=== PATIENT | male | born 1950 | race Caucasian/White ===

== ENCOUNTER 2016-05-28 14:58 | Outpatient (CLI) | payer BC, OTHER ==
[~2016-05-28 14:58] MED LIST: AMYL1CAP58 PO; ATOR10TA PO; DIPH1TAB70 PO; FERR325T28 PO; GABA-532 PO; INSU100I19 SQ; LOSA25TA13 PO; MAGN500C4 PO; MIDO10TA PO; OMEP40CA37 PO; SERT100T PO
== END 2016-05-28 23:59 | disposition home or self-care (01) ==
LOC: WOU 14:58
PROVIDERS: ATTEND Surgery
DX: S51.812D Laceration without foreign body of left forearm, subsequent encounter (principal); E11.42 Type 2 diabetes mellitus with diabetic polyneuropathy; Z86.73 Personal history of transient ischemic attack (TIA), and cerebral infarction without residual deficits; C25.9 Malignant neoplasm of pancreas, unspecified; Z92.21 Personal history of antineoplastic chemotherapy; Z85.820 Personal history of malignant melanoma of skin; I10 Essential (primary) hypertension
CPT/HCPCS: G0463

== ENCOUNTER 2016-06-03 11:58 | Outpatient (CLI) | payer BC, OTHER ==
[2016-06-03 13:06] LABS: IRON, SERUM 22 ug/dl (50-175); PERCENT SATURATION 11 % (14-33); TOTAL IRON BINDING CAPACITY 206 ug/dl (250-450)
[2016-06-03 13:08] LABS: ALANINE AMINOTRANSFERASE 46 U/L (12-78); ALBUMIN 2.3 g/dL (3.4-5.0); ANION GAP 9 (5-14); ASPARTATE AMINOTRANSFERASE 57 U/L (15-37); BILIRUBIN,TOTAL 0.2 mg/dL (0.2-1.0); CALCIUM, SERUM 7.9 mg/dL (8.5-10.1); CARBON DIOXIDE 29 mmol/L (21-32); CHLORIDE 103 mmol/L (98-107); CREATININE 0.7 mg/dL (0.6-1.3); GFR 114 mL/min (>60); GLUCOSE 181 mg/dL (74-106); POTASSIUM 4.7 mmol/L (3.5-5.1); SODIUM SERUM 137 mmol/L (136-145); TOTAL PROTEIN, SERUM 6.3 g/dL (6.4-8.2); UREA NITROGEN, BLOOD 4 mg/dL (7-18)
[2016-06-03 13:15] LABS: BASOPHILS % (AUTO) 0.8 % (0.0-2.0); DIFF TOTAL % 100 %; EOSINOPHILS % (AUTO) 0.7 % (0.0-6.0); HEMATOCRIT 33 % (39-51); HEMOGLOBIN 11.3 g/dL (13.5-17.5); LYMPHOCYTES # (AUTO) 1.5 /CMM (0.8-4.8); LYMPHOCYTES % (AUTO) 24.7 % (20.0-44.0); MEAN CORPUSCULAR HEMOGLOBIN 33 PG (26.0-33.0); MEAN CORPUSCULAR HGB CONC 34 g/dl (31.0-36.0); MEAN CORPUSCULAR VOLUME 98 fL (80-96); MONOCYTES # (AUTO) 0.2 /CMM (0.1-1.30); MONOCYTES % (AUTO) 3.8 % (2.0-12.0); NEUTROPHILS # (AUTO) 4.3 /CMM (1.8-8.9); PLATELET COUNT (AUTO) 305 /CMM (150-450); RED BLOOD CELL COUNT(AUTO) 3.39 MIL/uL (4.5-6.0)
[2016-06-03 13:17] LABS: CHOLESTEROL 85 mg/dL (<200); HDL CHOLESTEROL 29 mg/dL (40-60); LDL 51 mg/dL (0-99); THYROID STIMULATING HORMONE 4.382 uIU/mL (0.358-3.74); TRIGLYCERIDES 51 mg/dL (30-150)
[2016-06-04 08:09] LABS: VIT D, 25-HYDROXY 40.3 ng/mL (30.0-100.0)
[2016-06-05 13:12] LABS: *TESTOSTERONE, FREE (DIRECT) 2.6 pg/mL (6.6-18.1)
== END 2016-06-03 23:59 | disposition home or self-care (01) ==
LOC: LAB 11:58
PROVIDERS: ATTEND Legal Medicine
DX: E11.9 Type 2 diabetes mellitus without complications (principal); I10 Essential (primary) hypertension; D64.9 Anemia, unspecified; C25.9 Malignant neoplasm of pancreas, unspecified
CPT/HCPCS: 36415; 80053-TC; 80061-TC; 82306; 82728-TC; 83540-TC; 83735-TC; 84153-TC; 84402-TC; 84443-TC; 85025-TC; 86301

== ENCOUNTER 2016-06-10 08:02 | Outpatient (CLI) | payer BC, OTHER ==
[2016-06-10 08:59] LABS: BASOPHILS % (AUTO) 0.1 % (0.0-2.0); DIFF TOTAL % 100 %; EOSINOPHILS # (AUTO) 0.1 /CMM (0.0-0.7); EOSINOPHILS % (AUTO) 0.4 % (0.0-6.0); HEMATOCRIT 34 % (39-51); HEMOGLOBIN 11.3 g/dL (13.5-17.5); LYMPHOCYTES # (AUTO) 1.9 /CMM (0.8-4.8); LYMPHOCYTES % (AUTO) 9.4 % (20.0-44.0); MEAN CORPUSCULAR HEMOGLOBIN 33 PG (26.0-33.0); MEAN CORPUSCULAR HGB CONC 33 g/dl (31.0-36.0); MEAN CORPUSCULAR VOLUME 99 fL (80-96); MONOCYTES # (AUTO) 0.3 /CMM (0.1-1.30); MONOCYTES % (AUTO) 1.7 % (2.0-12.0); NEUTROPHILS # (AUTO) 17.5 /CMM (1.8-8.9); NEUTROPHILS % (AUTO) 88.4 % (43.0-81.0); PLATELET COUNT (AUTO) 168 /CMM (150-450); RED BLOOD CELL COUNT(AUTO) 3.44 MIL/uL (4.5-6.0); WHITE BLOOD COUNT (AUTO) 19.8 K/uL (4.3-11.0)
[2016-06-10 09:21] LABS: ALBUMIN 2.7 g/dL (3.4-5.0); BILIRUBIN,TOTAL 0.3 mg/dL (0.2-1.0); CALCIUM, SERUM 8.1 mg/dL (8.5-10.1); CREATININE 0.7 mg/dL (0.6-1.3); POTASSIUM 3.9 mmol/L (3.5-5.1); TOTAL PROTEIN, SERUM 7.1 g/dL (6.4-8.2)
[2016-06-10 13:58] LABS: ANISOCYTOSIS 2+; LYMPHOCYTES % (MANUAL) 12 % (16-48); PLATELET ESTIMATE ADEQUATE
== END 2016-06-10 23:59 | disposition home or self-care (01) ==
LOC: LAB 08:02
DX: C25.9 Malignant neoplasm of pancreas, unspecified (principal)
CPT/HCPCS: 36415; 80053-TC; 83735-TC; 85025-TC; 86301

== ENCOUNTER 2016-06-10 14:35 | Outpatient (CLI) | payer BC, OTHER | END 2016-06-10 23:59 | disposition home or self-care (01) | LOC: WOU 14:35 | PROVIDERS: ATTEND Podiatrist Foot & Ankle Surgery | DX: E11.621 Type 2 diabetes mellitus with foot ulcer (principal); L97.422 Non-pressure chronic ulcer of left heel and midfoot with fat layer exposed; L97.522 Non-pressure chronic ulcer of other part of left foot with fat layer exposed; E11.42 Type 2 diabetes mellitus with diabetic polyneuropathy; Z86.718 Personal history of other venous thrombosis and embolism; Z79.4 Long term (current) use of insulin; M20.40 Other hammer toe(s) (acquired), unspecified foot; L03.116 Cellulitis of left lower limb; R60.1 Generalized edema | CPT/HCPCS: 11042; A6402 ==

== ENCOUNTER 2016-06-15 07:33 | Outpatient (CLI) | payer BC, OTHER ==
[2016-06-15 08:00] LABS: BASOPHILS # (AUTO) 0.1 /CMM (0.0-0.2); BASOPHILS % (AUTO) 0.3 % (0.0-2.0); DIFF TOTAL % 100 %; EOSINOPHILS # (AUTO) 0.1 /CMM (0.0-0.7); EOSINOPHILS % (AUTO) 0.7 % (0.0-6.0); HEMATOCRIT 38 % (39-51); HEMOGLOBIN 12.3 g/dL (13.5-17.5); LYMPHOCYTES # (AUTO) 1.5 /CMM (0.8-4.8); LYMPHOCYTES % (AUTO) 7.1 % (20.0-44.0); MEAN CORPUSCULAR HEMOGLOBIN 33 PG (26.0-33.0); MEAN CORPUSCULAR HGB CONC 33 g/dl (31.0-36.0); MEAN CORPUSCULAR VOLUME 100 fL (80-96); MONOCYTES # (AUTO) 0.3 /CMM (0.1-1.30); MONOCYTES % (AUTO) 1.4 % (2.0-12.0); NEUTROPHILS # (AUTO) 18.7 /CMM (1.8-8.9); NEUTROPHILS % (AUTO) 90.5 % (43.0-81.0); PLATELET COUNT (AUTO) 198 /CMM (150-450); RED BLOOD CELL COUNT(AUTO) 3.77 MIL/uL (4.5-6.0); WHITE BLOOD COUNT (AUTO) 20.7 K/uL (4.3-11.0)
[2016-06-15 08:21] LABS: ALBUMIN 2.5 g/dL (3.4-5.0); BILIRUBIN,TOTAL 0.3 mg/dL (0.2-1.0); CALCIUM, SERUM 7.6 mg/dL (8.5-10.1); CREATININE 0.9 mg/dL (0.6-1.3); POTASSIUM 4.1 mmol/L (3.5-5.1); TOTAL PROTEIN, SERUM 6.8 g/dL (6.4-8.2)
[2016-06-15 09:12] LABS: ANISOCYTOSIS 2+; BAND % (MANUAL) 2 % (0.0-5.0); LYMPHOCYTES % (MANUAL) 9 % (16-48); PLATELET ESTIMATE ADEQUATE
== END 2016-06-15 23:59 | disposition home or self-care (01) ==
LOC: LAB 07:33
PROVIDERS: ATTEND Legal Medicine
DX: C25.9 Malignant neoplasm of pancreas, unspecified (principal)
CPT/HCPCS: 36415; 80053-TC; 83735-TC; 85025-TC; 86301

== ENCOUNTER 2016-06-17 09:59 | Outpatient (CLI) | payer BC, OTHER | END 2016-06-17 23:59 | disposition home or self-care (01) | LOC: WOU 09:59 | PROVIDERS: ATTEND Podiatrist Foot & Ankle Surgery | DX: E11.621 Type 2 diabetes mellitus with foot ulcer (principal); L97.522 Non-pressure chronic ulcer of other part of left foot with fat layer exposed; L97.521 Non-pressure chronic ulcer of other part of left foot limited to breakdown of skin; L97.411 Non-pressure chronic ulcer of right heel and midfoot limited to breakdown of skin; Z86.718 Personal history of other venous thrombosis and embolism; Z87.891 Personal history of nicotine dependence; E11.42 Type 2 diabetes mellitus with diabetic polyneuropathy; Z86.73 Personal history of transient ischemic attack (TIA), and cerebral infarction without residual deficits; Z85.820 Personal history of malignant melanoma of skin; I10 Essential (primary) hypertension; Z85.07 Personal history of malignant neoplasm of pancreas | CPT/HCPCS: 11042; A6402 ==

== ENCOUNTER 2016-06-23 08:35 | Outpatient (CLI) | payer BC, OTHER ==
[2016-06-23 09:26] LABS: BASOPHILS % (AUTO) 0.2 % (0.0-2.0); DIFF TOTAL % 100 %; EOSINOPHILS # (AUTO) 0.1 /CMM (0.0-0.7); EOSINOPHILS % (AUTO) 0.6 % (0.0-6.0); HEMATOCRIT 38 % (39-51); HEMOGLOBIN 12.4 g/dL (13.5-17.5); LYMPHOCYTES % (AUTO) 6.7 % (20.0-44.0); MEAN CORPUSCULAR HEMOGLOBIN 33 PG (26.0-33.0); MEAN CORPUSCULAR HGB CONC 33 g/dl (31.0-36.0); MEAN CORPUSCULAR VOLUME 100 fL (80-96); MONOCYTES % (AUTO) 0.1 % (2.0-12.0); NEUTROPHILS # (AUTO) 14.2 /CMM (1.8-8.9); NEUTROPHILS % (AUTO) 92.4 % (43.0-81.0); PLATELET COUNT (AUTO) 448 /CMM (150-450); RED BLOOD CELL COUNT(AUTO) 3.75 MIL/uL (4.5-6.0); WHITE BLOOD COUNT (AUTO) 15.3 K/uL (4.3-11.0)
[2016-06-23 09:41] LABS: ALBUMIN 2.5 g/dL (3.4-5.0); BILIRUBIN,TOTAL 0.3 mg/dL (0.2-1.0); CREATININE 0.6 mg/dL (0.6-1.3)
[2016-06-23 12:16] LABS: EOSINOPHILS % (MANUAL) 1 % (0-4); LYMPHOCYTES % (MANUAL) 9 % (16-48)
[2016-06-23 12:17] LABS: ANISOCYTOSIS 2+; PLATELET ESTIMATE INCREASED
== END 2016-06-23 23:59 | disposition home or self-care (01) ==
LOC: LAB 08:35
DX: C25.9 Malignant neoplasm of pancreas, unspecified (principal)
CPT/HCPCS: 36415; 80053-TC; 83735-TC; 85025-TC; 86301

== ENCOUNTER 2016-06-24 10:26 | Outpatient (CLI) | payer BC, OTHER | END 2016-06-24 23:59 | disposition home or self-care (01) | LOC: WOU 10:26 | PROVIDERS: ATTEND Podiatrist Foot & Ankle Surgery | DX: E11.621 Type 2 diabetes mellitus with foot ulcer (principal); L97.522 Non-pressure chronic ulcer of other part of left foot with fat layer exposed; L97.411 Non-pressure chronic ulcer of right heel and midfoot limited to breakdown of skin; B35.1 Tinea unguium; R60.0 Localized edema; E11.42 Type 2 diabetes mellitus with diabetic polyneuropathy; Z86.73 Personal history of transient ischemic attack (TIA), and cerebral infarction without residual deficits; Z85.820 Personal history of malignant melanoma of skin; Z85.07 Personal history of malignant neoplasm of pancreas | CPT/HCPCS: 11042; A6402 ==

== ENCOUNTER 2016-06-29 08:02 | Outpatient (CLI) | payer BC, OTHER ==
[2016-06-29 08:39] LABS: BASOPHILS % (AUTO) 0.1 % (0.0-2.0); DIFF TOTAL % 100 %; EOSINOPHILS # (AUTO) 0.1 /CMM (0.0-0.7); EOSINOPHILS % (AUTO) 0.2 % (0.0-6.0); HEMATOCRIT 35 % (39-51); HEMOGLOBIN 11.6 g/dL (13.5-17.5); LYMPHOCYTES # (AUTO) 0.9 /CMM (0.8-4.8); LYMPHOCYTES % (AUTO) 2.5 % (20.0-44.0); MEAN CORPUSCULAR HEMOGLOBIN 33 PG (26.0-33.0); MEAN CORPUSCULAR HGB CONC 33 g/dl (31.0-36.0); MEAN CORPUSCULAR VOLUME 101 fL (80-96); MONOCYTES % (AUTO) 0.1 % (2.0-12.0); NEUTROPHILS # (AUTO) 35.2 /CMM (1.8-8.9); NEUTROPHILS % (AUTO) 97.1 % (43.0-81.0); PLATELET COUNT (AUTO) 289 /CMM (150-450); RED BLOOD CELL COUNT(AUTO) 3.51 MIL/uL (4.5-6.0)
[2016-06-29 08:56] LABS: ALBUMIN 2.4 g/dL (3.4-5.0); BILIRUBIN,TOTAL 0.3 mg/dL (0.2-1.0); CALCIUM, SERUM 7.8 mg/dL (8.5-10.1); CREATININE 0.8 mg/dL (0.6-1.3); POTASSIUM 4.2 mmol/L (3.5-5.1); TOTAL PROTEIN, SERUM 6.7 g/dL (6.4-8.2)
[2016-06-29 09:00] LABS: WHITE BLOOD COUNT (AUTO) 36.2 K/uL (4.3-11.0)
[2016-06-29 09:12] LABS: BAND % (MANUAL) 2 % (0.0-5.0); LYMPHOCYTES % (MANUAL) 2 % (16-48); PLATELET ESTIMATE ADEQUATE
[2016-06-29 09:13] LABS: ANISOCYTOSIS 1+
== END 2016-06-29 23:59 | disposition home or self-care (01) ==
LOC: LAB 08:02
DX: C25.9 Malignant neoplasm of pancreas, unspecified (principal)
CPT/HCPCS: 36415; 80053-TC; 83735-TC; 85025-TC; 86301

== ENCOUNTER 2016-07-01 08:26 | Outpatient (CLI) | payer BC, OTHER | END 2016-07-01 23:59 | disposition home or self-care (01) | LOC: WOU 08:26 | PROVIDERS: ATTEND Podiatrist Foot & Ankle Surgery | DX: E11.621 Type 2 diabetes mellitus with foot ulcer (principal); L97.522 Non-pressure chronic ulcer of other part of left foot with fat layer exposed; B35.1 Tinea unguium; R60.0 Localized edema; E11.42 Type 2 diabetes mellitus with diabetic polyneuropathy; Z86.718 Personal history of other venous thrombosis and embolism; Z85.820 Personal history of malignant melanoma of skin; Z85.07 Personal history of malignant neoplasm of pancreas; Z86.73 Personal history of transient ischemic attack (TIA), and cerebral infarction without residual deficits | CPT/HCPCS: 11042; A6402 ==

== ENCOUNTER 2016-07-06 08:27 | Outpatient (CLI) | payer BC, OTHER ==
[2016-07-06 09:20] LABS: BASOPHILS % (AUTO) 0.1 % (0.0-2.0); DIFF TOTAL % 100 %; EOSINOPHILS # (AUTO) 0.2 /CMM (0.0-0.7); EOSINOPHILS % (AUTO) 0.8 % (0.0-6.0); HEMATOCRIT 38 % (39-51); HEMOGLOBIN 12.3 g/dL (13.5-17.5); LYMPHOCYTES # (AUTO) 1.6 /CMM (0.8-4.8); LYMPHOCYTES % (AUTO) 7.6 % (20.0-44.0); MEAN CORPUSCULAR HEMOGLOBIN 33 PG (26.0-33.0); MEAN CORPUSCULAR HGB CONC 33 g/dl (31.0-36.0); MEAN CORPUSCULAR VOLUME 101 fL (80-96); MONOCYTES # (AUTO) 0.8 /CMM (0.1-1.30); MONOCYTES % (AUTO) 3.7 % (2.0-12.0); NEUTROPHILS # (AUTO) 18.2 /CMM (1.8-8.9); NEUTROPHILS % (AUTO) 87.8 % (43.0-81.0); PLATELET COUNT (AUTO) 250 /CMM (150-450); RED BLOOD CELL COUNT(AUTO) 3.72 MIL/uL (4.5-6.0); WHITE BLOOD COUNT (AUTO) 20.8 K/uL (4.3-11.0)
[2016-07-06 09:33] LABS: ALBUMIN 2.3 g/dL (3.4-5.0); BILIRUBIN,TOTAL 0.3 mg/dL (0.2-1.0); CALCIUM, SERUM 7.8 mg/dL (8.5-10.1); CREATININE 0.9 mg/dL (0.6-1.3); POTASSIUM 4.5 mmol/L (3.5-5.1); TOTAL PROTEIN, SERUM 6.4 g/dL (6.4-8.2)
== END 2016-07-06 23:59 | disposition home or self-care (01) ==
LOC: LAB 08:27
DX: C25.9 Malignant neoplasm of pancreas, unspecified (principal)
CPT/HCPCS: 36415; 80053-TC; 83735-TC; 85025-TC; 86301

== ENCOUNTER 2016-07-13 16:53 | Outpatient (CLI) | payer BC, OTHER ==
[2016-07-13 17:51] LABS: BASOPHILS # (AUTO) 0.1 /CMM (0.0-0.2); BASOPHILS % (AUTO) 0.7 % (0.0-2.0); DIFF TOTAL % 100 %; EOSINOPHILS # (AUTO) 0.1 /CMM (0.0-0.7); HEMATOCRIT 33 % (39-51); HEMOGLOBIN 11.2 g/dL (13.5-17.5); LYMPHOCYTES # (AUTO) 0.9 /CMM (0.8-4.8); MEAN CORPUSCULAR HEMOGLOBIN 34 PG (26.0-33.0); MEAN CORPUSCULAR HGB CONC 34 g/dl (31.0-36.0); MEAN CORPUSCULAR VOLUME 101 fL (80-96); MONOCYTES % (AUTO) 0.4 % (2.0-12.0); NEUTROPHILS # (AUTO) 11.1 /CMM (1.8-8.9); NEUTROPHILS % (AUTO) 90.9 % (43.0-81.0); PLATELET COUNT (AUTO) 387 /CMM (150-450); RED BLOOD CELL COUNT(AUTO) 3.28 MIL/uL (4.5-6.0); WHITE BLOOD COUNT (AUTO) 12.2 K/uL (4.3-11.0)
[2016-07-13 17:58] LABS: BILIRUBIN,TOTAL 0.3 mg/dL (0.2-1.0); CALCIUM, SERUM 7.6 mg/dL (8.5-10.1); CREATININE 0.9 mg/dL (0.6-1.3); POTASSIUM 4.5 mmol/L (3.5-5.1); TOTAL PROTEIN, SERUM 6.2 g/dL (6.4-8.2)
== END 2016-07-13 23:59 | disposition home or self-care (01) ==
LOC: LAB 16:53
DX: C25.9 Malignant neoplasm of pancreas, unspecified (principal)
CPT/HCPCS: 36415; 80053-TC; 83735-TC; 85025-TC; 86301

== ENCOUNTER 2016-07-20 10:17 | Outpatient (CLI) | payer BC, OTHER ==
[2016-07-20 10:38] LABS: BASOPHILS % (AUTO) 0.2 % (0.0-2.0); DIFF TOTAL % 100 %; EOSINOPHILS # (AUTO) 0.2 /CMM (0.0-0.7); EOSINOPHILS % (AUTO) 1.3 % (0.0-6.0); HEMATOCRIT 33 % (39-51); LYMPHOCYTES % (AUTO) 9.3 % (20.0-44.0); MEAN CORPUSCULAR HEMOGLOBIN 33 PG (26.0-33.0); MEAN CORPUSCULAR HGB CONC 33 g/dl (31.0-36.0); MEAN CORPUSCULAR VOLUME 100 fL (80-96); MONOCYTES % (AUTO) 0.2 % (2.0-12.0); NEUTROPHILS # (AUTO) 9.9 /CMM (1.8-8.9); PLATELET COUNT (AUTO) 373 /CMM (150-450); RED BLOOD CELL COUNT(AUTO) 3.32 MIL/uL (4.5-6.0); WHITE BLOOD COUNT (AUTO) 11.2 K/uL (4.3-11.0)
[2016-07-20 11:00] LABS: ALBUMIN 2.1 g/dL (3.4-5.0); BILIRUBIN,TOTAL 0.3 mg/dL (0.2-1.0); CALCIUM, SERUM 7.8 mg/dL (8.5-10.1); CREATININE 0.6 mg/dL (0.6-1.3); TOTAL PROTEIN, SERUM 6.2 g/dL (6.4-8.2)
== END 2016-07-20 23:59 | disposition home or self-care (01) ==
LOC: LAB 10:17
DX: C25.9 Malignant neoplasm of pancreas, unspecified (principal)
CPT/HCPCS: 36415; 80053-TC; 83735-TC; 85025-TC; 86301

== ENCOUNTER 2016-07-27 08:13 | Outpatient (CLI) | payer BC, OTHER ==
[2016-07-27 08:46] LABS: BASOPHILS % (AUTO) 0.1 % (0.0-2.0); DIFF TOTAL % 100 %; EOSINOPHILS # (AUTO) 0.1 /CMM (0.0-0.7); EOSINOPHILS % (AUTO) 0.5 % (0.0-6.0); HEMATOCRIT 36 % (39-51); HEMOGLOBIN 11.7 g/dL (13.5-17.5); LYMPHOCYTES # (AUTO) 0.7 /CMM (0.8-4.8); LYMPHOCYTES % (AUTO) 6.8 % (20.0-44.0); MEAN CORPUSCULAR HEMOGLOBIN 33 PG (26.0-33.0); MEAN CORPUSCULAR HGB CONC 33 g/dl (31.0-36.0); MEAN CORPUSCULAR VOLUME 100 fL (80-96); MONOCYTES # (AUTO) 0.9 /CMM (0.1-1.30); MONOCYTES % (AUTO) 8.9 % (2.0-12.0); NEUTROPHILS # (AUTO) 8.3 /CMM (1.8-8.9); NEUTROPHILS % (AUTO) 83.7 % (43.0-81.0); PLATELET COUNT (AUTO) 281 /CMM (150-450); RED BLOOD CELL COUNT(AUTO) 3.55 MIL/uL (4.5-6.0); WHITE BLOOD COUNT (AUTO) 9.9 K/uL (4.3-11.0)
[2016-07-27 09:10] LABS: CALCIUM, SERUM 7.7 mg/dL (8.5-10.1); CREATININE 0.8 mg/dL (0.6-1.3); POTASSIUM 4.5 mmol/L (3.5-5.1)
[2016-07-27 09:14] LABS: ALBUMIN 2.2 g/dL (3.4-5.0); BILIRUBIN,TOTAL 0.3 mg/dL (0.2-1.0); TOTAL PROTEIN, SERUM 6.6 g/dL (6.4-8.2)
== END 2016-07-27 23:59 | disposition home or self-care (01) ==
LOC: LAB 08:13
PROVIDERS: ATTEND Legal Medicine
DX: C25.9 Malignant neoplasm of pancreas, unspecified (principal)
CPT/HCPCS: 36415; 80053-TC; 83735-TC; 85025-TC; 86301

== ENCOUNTER 2016-08-03 08:08 | Outpatient (CLI) | payer BC, OTHER ==
[2016-08-03 08:45] LABS: BASOPHILS # (AUTO) 0.2 /CMM (0.0-0.2); BASOPHILS % (AUTO) 0.8 % (0.0-2.0); DIFF TOTAL % 100 %; EOSINOPHILS # (AUTO) 0.1 /CMM (0.0-0.7); EOSINOPHILS % (AUTO) 0.4 % (0.0-6.0); HEMATOCRIT 36 % (39-51); HEMOGLOBIN 11.9 g/dL (13.5-17.5); LYMPHOCYTES # (AUTO) 1.2 /CMM (0.8-4.8); LYMPHOCYTES % (AUTO) 4.2 % (20.0-44.0); MEAN CORPUSCULAR HEMOGLOBIN 33 PG (26.0-33.0); MEAN CORPUSCULAR HGB CONC 33 g/dl (31.0-36.0); MEAN CORPUSCULAR VOLUME 101 fL (80-96); MONOCYTES # (AUTO) 0.3 /CMM (0.1-1.30); MONOCYTES % (AUTO) 1.1 % (2.0-12.0); NEUTROPHILS # (AUTO) 27.2 /CMM (1.8-8.9); NEUTROPHILS % (AUTO) 93.5 % (43.0-81.0); PLATELET COUNT (AUTO) 287 /CMM (150-450); RED BLOOD CELL COUNT(AUTO) 3.61 MIL/uL (4.5-6.0); WHITE BLOOD COUNT (AUTO) 29.1 K/uL (4.3-11.0)
[2016-08-03 08:54] LABS: ALBUMIN 2.3 g/dL (3.4-5.0); BILIRUBIN,TOTAL 0.3 mg/dL (0.2-1.0); CALCIUM, SERUM 8.3 mg/dL (8.5-10.1); CREATININE 0.9 mg/dL (0.6-1.3); POTASSIUM 4.8 mmol/L (3.5-5.1); TOTAL PROTEIN, SERUM 6.7 g/dL (6.4-8.2)
[2016-08-03 10:03] LABS: BAND % (MANUAL) 8 % (0.0-5.0); LYMPHOCYTES % (MANUAL) 5 % (16-48); PLATELET ESTIMATE ADEQUATE
[2016-08-03 10:04] LABS: ANISOCYTOSIS 1+
== END 2016-08-03 23:59 | disposition home or self-care (01) ==
LOC: LAB 08:08
DX: C25.9 Malignant neoplasm of pancreas, unspecified (principal)
CPT/HCPCS: 36415; 80053-TC; 83735-TC; 85025-TC; 86301

== ENCOUNTER → 2016-08-07 | Outpatient (CLI) | payer BC, OTHER ==
[2016-08-07 09:22] LABS: EOSINOPHILS # (AUTO) 0.1 /CMM (0.0-0.7); EOSINOPHILS % (AUTO) 0.7 % (0.0-6.0); HEMATOCRIT 31 % (39-51); HEMOGLOBIN 10.3 g/dL (13.5-17.5); LYMPHOCYTES # (AUTO) 0.6 /CMM (0.8-4.8); LYMPHOCYTES % (AUTO) 2.7 % (20.0-44.0); MEAN CORPUSCULAR HEMOGLOBIN 33 PG (26.0-33.0); MEAN CORPUSCULAR HGB CONC 33 g/dl (31.0-36.0); MEAN CORPUSCULAR VOLUME 100 fL (80-96); MONOCYTES % (AUTO) 0.2 % (2.0-12.0); NEUTROPHILS # (AUTO) 20.4 /CMM (1.8-8.9); NEUTROPHILS % (AUTO) 96.4 % (43.0-81.0); PLATELET COUNT (AUTO) 166 /CMM (150-450); RDW COEFFICIENT OF VARIATION 20.4 (11.5-15.0); RED BLOOD CELL COUNT(AUTO) 3.14 MIL/uL (4.5-6.0); WHITE BLOOD COUNT (AUTO) 21.1 K/uL (4.3-11.0)
[2016-08-07 09:38] LABS: BILIRUBIN,TOTAL 0.5 mg/dL (0.2-1.0); CALCIUM, SERUM 7.9 mg/dL (8.5-10.1); CREATININE 0.7 mg/dL (0.6-1.3); MAGNESIUM 1.6 mg/dL (1.8-2.4); POTASSIUM 5.5 mmol/L (3.5-5.1); TOTAL PROTEIN, SERUM 5.9 g/dL (6.4-8.2)
== END ==
LOC: CARD 08:26
PROVIDERS: ATTEND Legal Medicine
DX: I87.2 Venous insufficiency (chronic) (peripheral) (principal); R59.1 Generalized enlarged lymph nodes; C25.9 Malignant neoplasm of pancreas, unspecified
CPT/HCPCS: 36415; 80053-TC; 83735-TC; 85025-TC; 86301; 93925-TC; 93970-TC

== ENCOUNTER 2016-08-17 07:57 | Outpatient (CLI) | payer BC, OTHER ==
[2016-08-17 08:32] LABS: EOSINOPHILS # (AUTO) 0.1 /CMM (0.0-0.7); EOSINOPHILS % (AUTO) 0.7 % (0.0-6.0); HEMATOCRIT 33 % (39-51); HEMOGLOBIN 10.8 g/dL (13.5-17.5); LYMPHOCYTES # (AUTO) 0.9 /CMM (0.8-4.8); LYMPHOCYTES % (AUTO) 5.8 % (20.0-44.0); MEAN CORPUSCULAR HEMOGLOBIN 34 PG (26.0-33.0); MEAN CORPUSCULAR HGB CONC 33 g/dl (31.0-36.0); MEAN CORPUSCULAR VOLUME 103 fL (80-96); MONOCYTES # (AUTO) 0.8 /CMM (0.1-1.30); MONOCYTES % (AUTO) 4.9 % (2.0-12.0); NEUTROPHILS % (AUTO) 88.6 % (43.0-81.0); PLATELET COUNT (AUTO) 399 /CMM (150-450); RED BLOOD CELL COUNT(AUTO) 3.21 MIL/uL (4.5-6.0); WHITE BLOOD COUNT (AUTO) 15.8 K/uL (4.3-11.0)
[2016-08-17 08:41] LABS: ALBUMIN 1.9 g/dL (3.4-5.0); BILIRUBIN,TOTAL 0.3 mg/dL (0.2-1.0); CALCIUM, SERUM 7.7 mg/dL (8.5-10.1); CREATININE 0.8 mg/dL (0.6-1.3); MAGNESIUM 1.6 mg/dL (1.8-2.4); POTASSIUM 4.9 mmol/L (3.5-5.1); TOTAL PROTEIN, SERUM 5.9 g/dL (6.4-8.2)
== END 2016-08-17 23:59 | disposition home or self-care (01) ==
LOC: LAB 07:57
PROVIDERS: ATTEND Legal Medicine
DX: C25.9 Malignant neoplasm of pancreas, unspecified (principal)
CPT/HCPCS: 80053-TC; 83735-TC; 85025-TC

== ENCOUNTER 2016-08-25 08:05 | Outpatient (CLI) | payer BC, OTHER ==
[2016-08-25 08:30] LABS: BASOPHILS # (AUTO) 0.1 /CMM (0.0-0.2); BASOPHILS % (AUTO) 0.2 % (0.0-2.0); EOSINOPHILS # (AUTO) 0.1 /CMM (0.0-0.7); EOSINOPHILS % (AUTO) 0.2 % (0.0-6.0); HEMATOCRIT 33 % (39-51); LYMPHOCYTES # (AUTO) 1.2 /CMM (0.8-4.8); LYMPHOCYTES % (AUTO) 3.8 % (20.0-44.0); MEAN CORPUSCULAR HEMOGLOBIN 34 PG (26.0-33.0); MEAN CORPUSCULAR HGB CONC 33 g/dl (31.0-36.0); MEAN CORPUSCULAR VOLUME 102 fL (80-96); MONOCYTES # (AUTO) 0.5 /CMM (0.1-1.30); MONOCYTES % (AUTO) 1.4 % (2.0-12.0); NEUTROPHILS # (AUTO) 30.2 /CMM (1.8-8.9); NEUTROPHILS % (AUTO) 94.4 % (43.0-81.0); PLATELET COUNT (AUTO) 500 /CMM (150-450); RDW COEFFICIENT OF VARIATION 19.6 (11.5-15.0); RED BLOOD CELL COUNT(AUTO) 3.25 MIL/uL (4.5-6.0)
[2016-08-25 08:50] LABS: BILIRUBIN,TOTAL 0.2 mg/dL (0.2-1.0); CALCIUM, SERUM 7.9 mg/dL (8.5-10.1); CREATININE 0.8 mg/dL (0.6-1.3); POTASSIUM 4.4 mmol/L (3.5-5.1)
[2016-08-25 09:00] LABS: MAGNESIUM 1.2 mg/dL (1.8-2.4)
[2016-08-25 09:15] LABS: BAND % (MANUAL) 2 % (0.0-5.0); EOSINOPHILS % (MANUAL) 1 % (0-4); LYMPHOCYTES % (MANUAL) 6 % (16-48); MONOCYTES % (MANUAL) 4 % (0-11.0); NEUTROPHILS % (MANUAL) 87 (42-76); PLATELET ESTIMATE INCREASED
[2016-08-25 09:16] LABS: ANISOCYTOSIS 1+
== END 2016-08-25 23:59 | disposition home or self-care (01) ==
LOC: LAB 08:05
DX: C25.9 Malignant neoplasm of pancreas, unspecified (principal)
CPT/HCPCS: 36415; 80053-TC; 83735-TC; 85025-TC; 86301

== ENCOUNTER 2016-09-03 07:52 | Outpatient (CLI) | payer BC, OTHER ==
[2016-09-03 08:13] LABS: EOSINOPHILS # (AUTO) 0.1 /CMM (0.0-0.7); EOSINOPHILS % (AUTO) 0.5 % (0.0-6.0); HEMATOCRIT 33 % (39-51); HEMOGLOBIN 11.3 g/dL (13.5-17.5); LYMPHOCYTES # (AUTO) 0.9 /CMM (0.8-4.8); LYMPHOCYTES % (AUTO) 3.3 % (20.0-44.0); MEAN CORPUSCULAR HEMOGLOBIN 35 PG (26.0-33.0); MEAN CORPUSCULAR HGB CONC 34 g/dl (31.0-36.0); MEAN CORPUSCULAR VOLUME 102 fL (80-96); MONOCYTES # (AUTO) 0.1 /CMM (0.1-1.30); MONOCYTES % (AUTO) 0.2 % (2.0-12.0); NEUTROPHILS # (AUTO) 27.2 /CMM (1.8-8.9); PLATELET COUNT (AUTO) 208 /CMM (150-450); RDW COEFFICIENT OF VARIATION 19.1 (11.5-15.0); RED BLOOD CELL COUNT(AUTO) 3.26 MIL/uL (4.5-6.0); WHITE BLOOD COUNT (AUTO) 28.3 K/uL (4.3-11.0)
[2016-09-03 08:45] LABS: ANISOCYTOSIS 1+; BAND % (MANUAL) 2 % (0.0-5.0); LYMPHOCYTES % (MANUAL) 4 % (16-48); MONOCYTES % (MANUAL) 3 % (0-11.0); NEUTROPHILS % (MANUAL) 91 (42-76); PLATELET ESTIMATE ADEQUATE
[2016-09-03 08:55] LABS: ALBUMIN 2.1 g/dL (3.4-5.0); BILIRUBIN,TOTAL 0.3 mg/dL (0.2-1.0); CALCIUM, SERUM 7.7 mg/dL (8.5-10.1); CREATININE 0.8 mg/dL (0.6-1.3); MAGNESIUM 1.6 mg/dL (1.8-2.4); POTASSIUM 4.2 mmol/L (3.5-5.1); TOTAL PROTEIN, SERUM 6.1 g/dL (6.4-8.2)
== END 2016-09-03 23:59 | disposition home or self-care (01) ==
LOC: LAB 07:52
DX: C25.9 Malignant neoplasm of pancreas, unspecified (principal)
CPT/HCPCS: 36415; 80053-TC; 83735-TC; 85025-TC; 86301

== ENCOUNTER 2016-09-14 08:00 | Inpatient (IN) | payer BC, OTHER ==
[~2016-09-14] VITALS: Ht 190.5 cm; Wt 77.1 kg
--- NOTE | 2016-09-14 08:03 | NUR ---
PT BIB C/O GENERALIZED WEAKNESS AND HEADACHE X2 DAYS. PT HAD A GLF 2 DAYS AGO WHICH CAUSED ABRASIONS ON HIS L LOWER ARM AND STERNAL PAIN. NOW TOO WEAK TO AMBULATE BUT ABLE TO STAND DURING TRANSFERS, WITH ASSIST. NO NEURO DEFICITS OR VISUAL CHANGES REPORTED. A/OX4. AUSTYN LOWER EXT +3 PITTING EDEMA. RESP EVEN UNLABORED. SKIN WARM NONDIAPHORETIC. PT ALSO REPORTS THAT HE HAS "A STUBBORN UTI" WHICH HE IS BEING TREATED FOR AND SELF-CATHS AT HOME. IN ER BED 05 ON MONITOR. MD AT BEDSIDE.
--- NOTE | 2016-09-14 08:18 | NUR ---
TWITCHELL OPERATOR AT BEDSIDE FOR BLOOD DRAW
[2016-09-14] MEDS ORDERED: IV SET PRIMARY 1 EA INFUS.SET MC ONE (08:25)
[2016-09-14] MEDS ORDERED: IV NS 0.9% 1,000 ML ONE (08:25)
[2016-09-14] MEDS ORDERED: IV NS 0.9% 1,000 ML BAG IV ONE (08:30)
--- NOTE | 2016-09-14 08:32 | NUR ---
PT TRANSPORTED TO CT IN STABLE CONDITION
[2016-09-14 08:43] LABS: EOSINOPHILS % (AUTO) 0.2 % (0.0-6.0); HEMATOCRIT 28 % (39-51); HEMOGLOBIN 9.2 g/dL (13.5-17.5); LYMPHOCYTES # (AUTO) 0.6 /CMM (0.8-4.8); LYMPHOCYTES % (AUTO) 7.3 % (20.0-44.0); MEAN CORPUSCULAR HEMOGLOBIN 34 PG (26.0-33.0); MEAN CORPUSCULAR HGB CONC 33 g/dl (31.0-36.0); MEAN CORPUSCULAR VOLUME 105 fL (80-96); MONOCYTES % (AUTO) 0.1 % (2.0-12.0); NEUTROPHILS # (AUTO) 8.2 /CMM (1.8-8.9); NEUTROPHILS % (AUTO) 92.4 % (43.0-81.0); PLATELET COUNT (AUTO) 387 /CMM (150-450); RDW COEFFICIENT OF VARIATION 18.9 (11.5-15.0); RED BLOOD CELL COUNT(AUTO) 2.71 MIL/uL (4.5-6.0); WHITE BLOOD COUNT (AUTO) 8.8 K/uL (4.3-11.0)
[2016-09-14 08:50] LABS: APPEARANCE,URINE CLOUDY (CLEAR); BILIRUBIN,URINE NEGATIVE (NEGATIVE); BLOOD, URINE 2+ Ery/uL (NEGATIVE); COLOR,URINE YELLOW (YELLOW); KETONES,URINE 1+ (NEGATIVE); LEUKOCYTE ESTERASE ,URINE 2+ (NEGATIVE); NITRITE, URINE POSITIVE (NEGATIVE); PH,URINE 5.5 (5.0-8.0); PROTEIN,URINE TRACE mg/dl (NEGATIVE); UGLUCOSE NEGATIVE (NEGATIVE); UROBILINOGEN,URINE 0.2 EU/dL (0.2)
[2016-09-14 08:53] LABS: CALCIUM, SERUM 7.8 mg/dL (8.5-10.1); CARBON DIOXIDE 26 mmol/L (21-32); CHLORIDE 107 mmol/L (98-107); CREATININE 0.7 mg/dL (0.6-1.3); GFR 114 mL/min (>60); GLUCOSE 135 mg/dL (74-106); POTASSIUM 3.6 mmol/L (3.5-5.1); SODIUM SERUM 141 mmol/L (136-145); UREA NITROGEN, BLOOD 22 mg/dL (7-18)
[2016-09-14] MEDS ORDERED: PANTOPRAZOLE 40 MG VIAL ONE (08:59)
[2016-09-14 09:00] LABS: ALANINE AMINOTRANSFERASE 59 U/L (12-78); ALKALINE PHOSPHATASE 384 U/L (46-116); ASPARTATE AMINOTRANSFERASE 84 U/L (15-37); BILIRUBIN,DIRECT 0.2 mg/dL (0.0-0.2); BILIRUBIN,TOTAL 0.5 mg/dL (0.2-1.0); LIPASE 26 U/L (73-393); TOTAL PROTEIN, SERUM 6.2 g/dL (6.4-8.2)
[2016-09-14] MEDS ORDERED: PANTOPRAZOLE 40 MG VIAL IV ONE (09:00)
[2016-09-14 09:01] LABS: ADD URINE CULTURE YES; TROPONIN I < 0.017 ng/mL (0.00-0.056); WBC,URINE TOO NUMEROUS TO COUN /HPF (0-3)
[2016-09-14 09:02] LABS: BACTERIA,URINE Many /HPF (None Seen); INR 1.02 (0.87-1.13); LACTIC ACID 1.3 mmol/L (0.4-2.0); PROTHROMBIN TIME 10.9 SECS (9.5-12.7); SQUAMOUS EPITHELIAL CELL,UR Few /HPF (None Seen)
[2016-09-14] MEDS ORDERED: LEVOFLOXACIN 750 MG /D5W 150ML 150 ML IV ONE (09:05)
[2016-09-14] MEDS ORDERED: IV SET PRIMARY PUMP SET 1 EA INFUS.SET MC ONE ×3 (09:05→14:19)
[2016-09-14] MEDS ORDERED: LEVOFLOXACIN 750 MG /D5W 150ML PIGGYBACK IV ONE (09:30)
[2016-09-14] MEDS ORDERED: GENTAMICIN 80 MG in IV D5W 50 ML IV ONE (09:30)
--- NOTE | 2016-09-14 09:30 | NUR ---
DR CENTENO PAGED [phone]
--- NOTE | 2016-09-14 10:00 | NUR ---
RESTING QUIETLY, NAD NOTED. ALL NEEDS ATTENDED TO. AT BASELINE. VSS.
--- NOTE | 2016-09-14 10:30 | NUR ---
MS SERVICE DELIVERY ANALYST NOTE PATIENT IS ALERT AND ORIENTED x4. NO PAIN AT THIS TIME. NO SOB OR DISTRESS NOTED. CALL LIGHT WITHIN REACH. SAFETY MEASURES IMPLEMENTED. ADMITTED FROM EMERGENCY ROOM, RECEIVED REPORT FROM MAYRA LAROSE. IV INTACT AND PATENT NO REDNESS OR SWELLING NOTED. MONTEJO CATHETER IN PLACE. BEDREST. ABLE TO COMMUNICATE NEEDS. ALLERGY TO PENICILLINS. NO ISOLATION. FULL CODE. HAD FALL TWO DAYS AGO. WILL CONTINUE TO MONITOR
--- NOTE | 2016-09-14 10:35 | NUR ---
PT TRANSPORTED TO 317 IN STABLE CONDITION
[2016-09-14 12:00] VITALS: BP 124/78
[2016-09-14] MEDS ORDERED: ONDANSETRON HCL/PF 4 MG/2 ML VIAL IVP PRN (12:30)
[2016-09-14] MEDS ORDERED: ACETAMINOPHEN 325 MG TABLET PO PRN (12:30)
[2016-09-14] MEDS ORDERED: DEXTROSE 50%-WATER 50 ML DISP.SYRIN IV PRN (12:30)
[2016-09-14] MEDS ORDERED: SECONDARY IV SET 1 EA INFUS.SET MC ONE (14:19)
[2016-09-14] MEDS: IV NS 0.9% 1,000 ML IV PRN (14:34)
[2016-09-14] MEDS: SOD FERRIC GLUC 125 MG in IV NS 0.9% 100 ML IV SCH (14:35)
[2016-09-14 16:00] VITALS: BP 112/68
[2016-09-14] MEDS: BLOOD SUGAR DIAGNOSTIC 1 EACH STRIP IN SCH ×2 (16:58→21:22)
[2016-09-14] MEDS: RIVAROXABAN 10 MG TABLET PO SCH (17:04)
[2016-09-14] MEDS: INSULIN REGULAR, HUMAN 100 UNIT/ML 3 ML VIAL SQ PRN ×2 (17:30→21:24)
--- NOTE | 2016-09-14 18:27 | NUR ---
MS RN CLOSING NOTE PATIENT IS AWAKE IN BED LOCKED IN LOWEST POSITION WITH SIDERAILS UPx2. NO PAIN AT THIS TIME. NO SOB OR DISTRESS NOTED. ALL DUE MEDICATION GIVEN ORDERED. SAFETY MEASURES IMPLEMENTED. CALL LIGHT WITHIN REACH AT ALL TIMES. NO SIGNIFICANT CHANGES, WILL ENDORSE TO ENTERPRISE BUSINESS ARCHITECT NURSE
[2016-09-14 20:00] VITALS: BP 117/70
--- NOTE | 2016-09-14 20:06 | NUR ---
MS REID INITIAL NOTES SEEN PT IN BED COVERED WITH HIS BLANKET ALL THE WAY TO HIS HEAD, HE JUST OPEN WHEN I CALLED HIS NAME. HE STATED THAT HE ALWAYS FEEL COLD THAT'S WHY HE COVERED HIS FACE. DENIES ANY PAIN OR ANY DISCOMFORT. PUT THE HEATER ON HE REQUESTED. NO SIGNS OF ANY ACUTE DISTRESS NOTED. ENCOURAGED HIM TO USED THE CALL LIGHT SYSTEM IF HE NEEDS SOME HELP OR NEEDS THE NURSE. MONTEJO TO GRAVITY PATENT AND DRAINING WELL. KEPT HIM WARM AND COMFORTABLE AT ALL TIMES. PLACE THE AIR MATTRESS TO ISOFLEX TO MADE PT COMFORTABLE AND FOR HIS SKIN TOO. WILL CONTINUE TO MONITOR. PLACE CALL LIGHT AT REACH.
[2016-09-14 20:16] VITALS: BP 117/70
--- NOTE | 2016-09-14 22:06 | NUR ---
CASING BLOWER/NOTES BLOOD SUGAR CHECKED DONE 140 GAVE 2 UNITS OF INSULIN RACHAEL SQ ORDERED. SNACKS ALSO SERVED. PT STILL ON IVF OF NS AT 85ML/HR. WILL CONTINUE TO MONITOR. PLACE CALL LIGHT AT REACH.
--- NOTE | 2016-09-15 01:49 | NUR ---
EHR TRAINER/NOTES PT SLEEPING COMFORTABLY AFTER SPONGE BATH RENDERED WITH THE HELPED OF CASSY WILLS. KEPT HIM WARM AND COMFORTABLE AT ALL TIMES. WILL CONTINUE TO MONITOR. PLACE CALL LIGHT AT REACH.
[2016-09-15] MEDS: IV NS 0.9% 1,000 ML IV PRN ×2 (05:42→19:13)
[2016-09-15] MEDS: BLOOD SUGAR DIAGNOSTIC 1 EACH STRIP IN SCH ×4 (05:49→23:04)
--- NOTE | 2016-09-15 07:30 | NUR ---
received pt. alert and oriented x4.vs stable. no complaints.
--- NOTE | 2016-09-15 07:30 | NUR ---
MS CATALOGUE ILLUSTRATOR CLOSING NOTES BLOOD SUGAR 120 NO INSULIN GIVEN AT THIS TIME. NO SIGNS OF HYPO GLYCEMIA NOTED. IVF STILL INFUSING AND ALL DUE MEDS GIVEN. STABLE RACHAEL THE NIGHT AND SLEPT WELL. KEPT HIM COMFORTABLE AT ALL TIMES. PLACE CALL LIGHT AT REACH. ENDORSE TO AM NURSE MARINO Son FOR CONTINUITY OF CARE.
[2016-09-15 08:00] VITALS: BP 126/76
--- NOTE | 2016-09-15 10:30 | NUR ---
medicated for pain lt. hip lt knee and chest,with morphine.
[2016-09-15] MEDS: PANTOPRAZOLE 40 MG TABLET.DR PO SCH (10:39)
[2016-09-15] MEDS: MORPHINE SULFATE INJ 2 MG/ML DISP.SYRIN IV PRN ×2 (10:54→23:14)
--- NOTE | 2016-09-15 11:20 | NUR ---
WOUND CARE CONSULT: PT REFUSED SKIN ASSESSMENT AT THIS TIME. WILL SEE PT PT CONDITION PERMITS. PT ON LATOSHA ISOFLEX LOW AIRLOSS BED. ALL SKIN PROTECTION MEASURES IN PLACE AND DISCUSSED WITH NURSING STAFF.
[2016-09-15] MEDS ORDERED: CEFTRIAXONE 1 G VIAL IM SCH (12:00)
[2016-09-15] MEDS: Z GUARD REMEDY 2 OZ OINT TP SCH (12:45)
[2016-09-15 12:51] LABS: CALCIUM, SERUM 7.1 mg/dL (8.5-10.1); CREATININE 0.6 mg/dL (0.6-1.3); POTASSIUM 3.2 mmol/L (3.5-5.1)
[2016-09-15] MEDS: INSULIN REGULAR, HUMAN 100 UNIT/ML 3 ML VIAL SQ PRN ×3 (12:55→23:06)
[2016-09-15 12:57] LABS: BASOPHILS % (AUTO) 0.1 % (0.0-2.0); HEMATOCRIT 26 % (39-51); HEMOGLOBIN 8.4 g/dL (13.5-17.5); LYMPHOCYTES # (AUTO) 0.6 /CMM (0.8-4.8); LYMPHOCYTES % (AUTO) 6.1 % (20.0-44.0); MEAN CORPUSCULAR HEMOGLOBIN 34 PG (26.0-33.0); MEAN CORPUSCULAR HGB CONC 33 g/dl (31.0-36.0); MEAN CORPUSCULAR VOLUME 103 fL (80-96); MONOCYTES # (AUTO) 0.4 /CMM (0.1-1.30); MONOCYTES % (AUTO) 4.5 % (2.0-12.0); NEUTROPHILS # (AUTO) 8.6 /CMM (1.8-8.9); NEUTROPHILS % (AUTO) 89.3 % (43.0-81.0); PLATELET COUNT (AUTO) 283 /CMM (150-450); RDW COEFFICIENT OF VARIATION 18.5 (11.5-15.0); RED BLOOD CELL COUNT(AUTO) 2.48 MIL/uL (4.5-6.0); WHITE BLOOD COUNT (AUTO) 9.6 K/uL (4.3-11.0)
[2016-09-15] MEDS: SOD FERRIC GLUC 125 MG in IV NS 0.9% 100 ML IV SCH (14:22)
[2016-09-15 16:00] VITALS: BP 109/68
[2016-09-15] MEDS: CEFTRIAXONE 1 G in IV D5W 50 ML IV SCH (18:17)
[2016-09-15] MEDS: BACI/NEOM/POLY B OINT PKT 1 UDPKT PACKET TP SCH (18:19)
[2016-09-15] MEDS: RIVAROXABAN 10 MG TABLET PO SCH (18:19)
[2016-09-15] MEDS ORDERED: SECONDARY IV SET 1 EA INFUS.SET MC ONE (18:23)
--- NOTE | 2016-09-15 18:30 | NUR ---
in to visit.
--- NOTE | 2016-09-15 19:30 | NUR ---
MS CLINICAL EDUCATION MANAGER INITIAL NOTES SEEN PT IN HIS ROOM RESTING COVERED WITH HIS BLANKET BUT AROUSES TO TOUCH AND WHEN YOU CALLED HIS NAME. DENIES ANY PAIN OR ANY DISCOMFORT. NOT IN ANY ACUTE DISTRESS NOTED, IVF STILL INFUSING NS TA 85ML/HR ON HIS LEFT FOREARM PATENT AND INTACT. MONTEJO TO GRAVITY AND KEPT HIM WARM AND COMFORTABLE AT ALL TIMES. BED ALARM SET FOR PT SAFETY. ISOLATION PRECAUTION IMPLEMENTED AND OBSERVED. WILL CONTINUE TO MONITOR. PLACE CALL LIGHT AT REACH.
[2016-09-15 20:00] VITALS: BP 110/66
--- NOTE | 2016-09-15 20:15 | NUR ---
MS REID NOTES AFTER I'LL CHECKED MY LAB RESULT CALLED DR CENTENO TO CLARIFY THAT POTASSIUM LEVEL OF PT WAS 3.2. TODAY RESULT CAME OUT 12:30 THIS AFTERNOON. WAITING FOR HIS CALL BACK.
--- NOTE | 2016-09-15 20:20 | NUR ---
KOSHER DIETARY SERVICE MANAGER/NOTES DR CENTENO CALLED BACK GOT ORDERED POTASSIUM 40MEQ PO X1 TODAY . WILL CONTINUE TO MONITOR.
[2016-09-15] MEDS ORDERED: POTASSIUM CHLORIDE 20 MEQ TAB.PRT.SR PO ONE (20:30)
--- NOTE | 2016-09-15 21:48 | NUR ---
MARKETING ADMINISTRATIVE ASSISTANT/NOTES K-DUR 40 MEQ GIVEN PO AND PT TOLERATED WELL, NO ASPIRATION NOTED. WILL CONTINUE TO MONITOR. PLACE CALL LIGHT AT REACH.
--- NOTE | 2016-09-15 23:05 | NUR ---
COMMERCIAL LOAN OFFICER/NOTES BLOOD SUGAR 182, 3 UNITS OF INSULIN GIVEN, SNACKS ALSO SERVED. PT STILL ON IVF NS AT 75ML/HR .
--- NOTE | 2016-09-15 23:15 | NUR ---
GATEKEEPER/NOTES C/O LOWER BACK PAIN. LOWER LEG PAIN , MORPHINE 2 MG IVP GIVEN BY NURSE BONNIE/RN RACHAEL IVP ORDERED. PT AWARE OF SIDE EFFECT AND SAFETY PRECAUTION APPLIED FOR PT SAFETY .WILL CONTINUE TO MONITOR. PLACE CALL LIGHT AT REACH.
--- NOTE | 2016-09-16 00:10 | NUR ---
CYLINDER SANDER OPERATOR/NOTES RE-ASSESSMENT CHECKED PT AFTER PAIN MED GIVEN, SLEEPING AT THIS TIME, NO SIGNS OF ANY ACUTE DISTRESS NOTED, BREATHING EVEN AND UN-LABORED. KEPT HIM WARM AND COMFORTABLE AT ALL TIMES. PLACE CALL LIGHT AT REACH. WILL CONTINUE TO MONITOR.
[2016-09-16] MEDS: BLOOD SUGAR DIAGNOSTIC 1 EACH STRIP IN SCH ×4 (06:20→21:45)
[2016-09-16] MEDS: Z GUARD REMEDY 2 OZ OINT TP PRN ×3 (06:20→21:56)
[2016-09-16] MEDS: MINERAL OIL/PETROLATUM,WHITE 120 GM JAR TP PRN ×2 (06:20→21:57)
[2016-09-16] MEDS: PANTOPRAZOLE 40 MG TABLET.DR PO SCH (06:28)
[2016-09-16] MEDS: IV NS 0.9% 1,000 ML IV PRN ×2 (06:31→21:58)
--- NOTE | 2016-09-16 07:30 | NUR ---
BRIDGE OPERATOR SLIP CLOSING NOTES PT WOKE UP MORNING CARE DONE WELL SKIN BARRIER APPLIED. MEPILEX ALSO APPLIED TO BONY PART .REPOSITION FOR COMFORT. BLOOD SUGAR 112, NO INSULIN GIVEN. NO SIGNS OF HYPO GLYCEMIA NOTED. KEPT HIM COMFORTABLE AT ALL TIMES. ENDORSE TO AM NURSE FOR CONTINUITY OF CARE. PLACE CALL LIGHT AT REACH.
--- NOTE | 2016-09-16 07:40 | NUR ---
RECEIVED PT. ALERT AND ORIENTED X 4.IV INFUSING,NO COMPLAINTS OFFERED.SIDERAILS UP.CALL REINA WITHIN REACH.
[2016-09-16 08:00] VITALS: BP 122/73
--- NOTE | 2016-09-16 08:15 | NUR ---
WOUND CARE CONSULT: PT PRESENTS WITH DRY ABRASIONS TO BODY AND OPEN SKIN TEARS TO ARMS, PRESENT ON ADMISSION. EDEMA NOTED TO FEET AND ANKLES (3+ PITTING) AND DRY ABRASIONS TO RT TOES, PRESENT ON ADMISSION. PT ON LATOSHA ISOFLEX LOW AIRLOSS BED. ALL SKIN PROTECTION MEASURES IN PLACE AND DISCUSSED WITH NURSING STAFF. WILL SEE PRN. COLE IN AGREEMENT WITH PLAN OF CARE. Addendum: 09/16/16 at 0817 by NELSON SABA WNDNU Amended: Links added.
[2016-09-16] MEDS: BACI/NEOM/POLY B OINT PKT 1 UDPKT PACKET TP SCH ×2 (08:33→18:17)
[2016-09-16] MEDS: Z GUARD REMEDY 2 OZ OINT TP SCH (08:35)
--- NOTE | 2016-09-16 11:30 | NUR ---
REMAINS IN ISOL.
[2016-09-16] MEDS: INSULIN REGULAR, HUMAN 100 UNIT/ML 3 ML VIAL SQ PRN ×3 (12:34→21:45)
[2016-09-16] MEDS: MUPIROCIN OINT 2% 22 GM TUBE SCH ×2 (12:36→21:57)
--- NOTE | 2016-09-16 13:00 | NUR ---
UP IN CHAIR WITH VENU [place]. SUSTAINED NEW SKIN TEAR TO LT. WRIST,PHOTO TAKEN AND MEPILEX APPLIED.
[2016-09-16] MEDS: SOD FERRIC GLUC 125 MG in IV NS 0.9% 100 ML IV SCH (15:45)
[2016-09-16] MEDS: MORPHINE SULFATE INJ 2 MG/ML DISP.SYRIN IV PRN ×2 (15:46→23:27)
[2016-09-16 16:00] VITALS: BP 112/67
--- NOTE | 2016-09-16 16:33 | NUR ---
MED. FOR PAIN WITH MORPHINE WITH GOOD EFFECT. IN TO VISIT.
[2016-09-16] MEDS ORDERED: SECONDARY IV SET 1 EA INFUS.SET MC ONE (16:35)
--- NOTE | 2016-09-16 17:30 | NUR ---
HAVING FREQ. STOOLS, IN AND ORDERS GIVEN.
[2016-09-16] MEDS ORDERED: DIPHENOXYLATE HCL/ATROP SULF 1 UDTAB TABLET PO PRN ×2 (18:00)
[2016-09-16] MEDS: CEFTRIAXONE 1 G in IV D5W 50 ML IV SCH (18:17)
[2016-09-16] MEDS: RIVAROXABAN 10 MG TABLET PO SCH (18:18)
[2016-09-16 20:00] VITALS: BP 117/68
--- NOTE | 2016-09-16 20:00 | NUR ---
MS GRAB HOOKER INITIAL NOTES SEEN PT IN BED AWAKE AND ALERT COVERING HIS HEAD WITH HIS BLANKET BUT HE OPEN IT WHEN YOU STARTED TALKING TO HIM, BREATHING EVEN AND NON-LABORED. NOT IN ANY ACUTE DISCOMFORT. IVF STILL INFUSING ON HIS LEFT ARM PATENT AND INTACT. MONTEJO TO GRAVITY. KEPT HIM WARM AND COMFORTABLE AT ALL TIMES. WILL CONTINUE TO MONITOR. PLACE CALL LIGHT AT REACH.
--- NOTE | 2016-09-16 21:45 | NUR ---
CLIENT ANALYST/NOTES BLOOD SUGAR 259, 6 UNITS OF INSULIN GIVEN RACHAEL SQ ORDERED. SNACKS ALSO SERVED. WILL CONTINUE TO MONITOR.
[2016-09-17] VITALS (11 sets, daily range): BP systolic 115–132; BP diastolic 61–77
[2016-09-17] MEDS: MORPHINE SULFATE INJ 2 MG/ML DISP.SYRIN IV PRN ×4 (04:26→21:24)
--- NOTE | 2016-09-17 04:26 | NUR ---
TAX AUDITOR/NOTES PAIN MGT C/O LOWER BACK PAIN AND LEG PAIN, MORPHINE 2 MG GIVEN RACHAEL IVP ORDERED. PT AWARE OF SIDE EFFECT. KEPT HIM WARM AND COMFORTABLE AT ALL TIMES. WILL CONTINUE TO MONITOR PLACE CALL LIGHT AT REACH.
--- NOTE | 2016-09-17 05:00 | NUR ---
ACCOUNTING SYSTEMS ANALYST/NOTES RE-ASSESSMENT CHECKED PT SLEEPING COMFORTABLY WHILE COVERING HIS WHOLE BODY WITH WARM BLANKET BUT AROUSES TO TOUCH, WILL CONTINUE TO MONITOR. PLACE CALL LIGHT AT REACH.
[2016-09-17] MEDS: PANTOPRAZOLE 40 MG TABLET.DR PO SCH (06:24)
[2016-09-17] MEDS: BLOOD SUGAR DIAGNOSTIC 1 EACH STRIP IN SCH ×4 (06:24→22:26)
[2016-09-17 06:44] LABS: BASOPHILS % (AUTO) 0.3 % (0.0-2.0); EOSINOPHILS # (AUTO) 0.1 /CMM (0.0-0.7); EOSINOPHILS % (AUTO) 0.9 % (0.0-6.0); HEMATOCRIT 24 % (39-51); HEMOGLOBIN 7.9 g/dL (13.5-17.5); LYMPHOCYTES # (AUTO) 0.8 /CMM (0.8-4.8); LYMPHOCYTES % (AUTO) 6.7 % (20.0-44.0); MEAN CORPUSCULAR HEMOGLOBIN 34 PG (26.0-33.0); MEAN CORPUSCULAR HGB CONC 33 g/dl (31.0-36.0); MEAN CORPUSCULAR VOLUME 104 fL (80-96); MONOCYTES # (AUTO) 0.6 /CMM (0.1-1.30); NEUTROPHILS # (AUTO) 10.9 /CMM (1.8-8.9); NEUTROPHILS % (AUTO) 87.1 % (43.0-81.0); PLATELET COUNT (AUTO) 279 /CMM (150-450); RDW COEFFICIENT OF VARIATION 18.7 (11.5-15.0); RED BLOOD CELL COUNT(AUTO) 2.32 MIL/uL (4.5-6.0); WHITE BLOOD COUNT (AUTO) 12.5 K/uL (4.3-11.0)
--- NOTE | 2016-09-17 06:53 | NUR ---
MS HERPETOLOGIST CLOSING NOTES BLOOD SUGAR CHECKED 114, NO INSULIN GIVEN, ALL DUE MEDS GIVEN AND ALL NEEDS MET, STABLE RACHAEL THE NIGHT . KEPT HIM WARM AND COMFORTABLE AT ALL TIMES. IVF STILL INFUSING ON HIS LEFT FOREARM. PLACE CALL LIGHT AT REACH. ENDORSE TO AM NURSE FOR CONTINUITY OF CARE.
[2016-09-17 07:09] LABS: CALCIUM, SERUM 7.3 mg/dL (8.5-10.1); CREATININE 0.5 mg/dL (0.6-1.3); POTASSIUM 4.4 mmol/L (3.5-5.1)
--- NOTE | 2016-09-17 08:00 | NUR ---
MS RN OPENING NOTES RECEIVED PATIENT A/O X4. PT DID NOT SHOW ANY SIGNS OF DISTRESS. PATIENT IV WAS PATENT AND INTACT. PT BED WAS IN SEMI-WHITE'S LOW LOCKED POSITION. PT MONTEJO CATHETER WAS PATENT AND INTACT, DRAINING CLEAR YELLOW URINE. PT REQUESTED GRAPE JUICE. WILL CALL [employer] TO HAVE THEM BRING GRAPE JUICE. WILL CONTINUE TO MONITOR PT THROUGHOUT SHIFT FOR CHANGES.
[2016-09-17] MEDS: DOXYCYCLINE 100 MG in IV D5W 100 ML IV SCH ×2 (09:10→22:26)
[2016-09-17] MEDS: BACI/NEOM/POLY B OINT PKT 1 UDPKT PACKET TP SCH ×2 (09:10→17:22)
[2016-09-17] MEDS: MUPIROCIN OINT 2% 22 GM TUBE SCH ×2 (09:12→21:50)
[2016-09-17] MEDS ORDERED: SECONDARY IV SET 1 EA INFUS.SET MC ONE ×2 (09:12→21:14)
[2016-09-17] MEDS: Z GUARD REMEDY 2 OZ OINT TP SCH (09:13)
--- NOTE | 2016-09-17 11:00 | NUR ---
MS RN NOTES PATIENT WAS COMPLAINING OF LEFT ARM PAIN. GAUZE THAT WAS COVERING SKIN TEAR WAS REMOVED. PATIENT IV WAS LEAKING AND HURTING THE PATIENT. IV WAS IMMEDIATELY REMOVED. NEW IV STARTED ON PT R FOREARM 22 G. SKIN TEAR WAS CLEANSED WITH NORMAL SALINE AND AN ANTIBIOTIC OINTMENT. MEPILEX DRESSING WAS APPLIED ON SKIN TEAR AND COVERED IN GAUZE. MORPHINE WAS ADMINISTERED TO ASSIST THE PT IN TOLERATING THE PAIN. PROVIDED DISTRACTION TECHNIQUES SUCH OFFERING JUICE TO HELP EASE THE PATIENT'S PAIN.
[2016-09-17] MEDS: INSULIN REGULAR, HUMAN 100 UNIT/ML 3 ML VIAL SQ PRN ×3 (11:46→22:32)
[2016-09-17] MEDS: SOD FERRIC GLUC 125 MG in IV NS 0.9% 100 ML IV SCH (14:43)
[2016-09-17] MEDS ORDERED: IV NS 0.9% 250 ML IV ONE (16:31)
[2016-09-17] MEDS ORDERED: BLOOD IV SET 1 EA INFUS.SET MC ONE (16:31)
[2016-09-17] MEDS: RIVAROXABAN 10 MG TABLET PO SCH (17:29)
--- NOTE | 2016-09-17 19:00 | NUR ---
MS RN OPENING NOTES: RECEIVED PATIENT AWAKE AND LAYING IN BED A/O X4. PATIENT RECEIVING BLOOD TRANSFUSION. PT ON ROOM AIR. PT HAS MONTEJO CATH AND DIAPER ON. KEPT SKIN CLEAN, DRY, AND COMFORTABLE. CALL LIGHT WITHIN PT'S REACH. BED KEPT IN LOCKED, LOWEST POSITION, AND SIDE RAILS X2 UP. IV ON R FOREARM #22G AND IS PATENT AND INTACT. WILL CONTINUE TO MONITOR PT.
--- NOTE | 2016-09-17 19:56 | NUR ---
MS RN NOTES PATIENT IN BED RESTING NO SOB OR ACUTE DISTRESS NOTED. PATIENT RECEIVING BLOOD TRANSFUSION TOLERATING WELL NO ADVERSE REACTION NOTED. MONITORED CLOSELY. ALL DUE MEDICATIONS GIVEN. ALL NEEDS MET. WILL ENDORSE TO PM SHIFT. IV INTACT PATENT ON RIGHT UPPER ARM. WILL ENDORSE CARE TO PM SHIFT.
--- NOTE | 2016-09-17 20:20 | NUR ---
RN NOTES BLOOD TRANSFUSION FINISHED, V/S STABLE, NO COMPLAINED OF ITCHINESS AND SOB
--- NOTE | 2016-09-17 21:24 | NUR ---
MS RN NOTES: PT C/O 6/10 PAIN ON LEFT HIP, CHEST, AND BACK. PATIENT RECEIVED MORPHINE 2MG IV. WILL CONTINUE TO MONITOR PT.
[2016-09-17] MEDS: CEFTRIAXONE 1 G in IV D5W 50 ML IV SCH (21:31)
[2016-09-18] MEDS: BLOOD SUGAR DIAGNOSTIC 1 EACH STRIP IN SCH ×4 (06:09→21:39)
[2016-09-18 06:36] LABS: BASOPHILS % (AUTO) 0.1 % (0.0-2.0); EOSINOPHILS # (AUTO) 0.3 /CMM (0.0-0.7); HEMATOCRIT 28 % (39-51); HEMOGLOBIN 9.4 g/dL (13.5-17.5); LYMPHOCYTES # (AUTO) 0.8 /CMM (0.8-4.8); LYMPHOCYTES % (AUTO) 5.5 % (20.0-44.0); MEAN CORPUSCULAR HEMOGLOBIN 34 PG (26.0-33.0); MEAN CORPUSCULAR HGB CONC 33 g/dl (31.0-36.0); MEAN CORPUSCULAR VOLUME 102 fL (80-96); MONOCYTES # (AUTO) 0.8 /CMM (0.1-1.30); MONOCYTES % (AUTO) 5.7 % (2.0-12.0); NEUTROPHILS # (AUTO) 12.4 /CMM (1.8-8.9); NEUTROPHILS % (AUTO) 86.7 % (43.0-81.0); PLATELET COUNT (AUTO) 265 /CMM (150-450); RDW COEFFICIENT OF VARIATION 22.1 (11.5-15.0); RED BLOOD CELL COUNT(AUTO) 2.77 MIL/uL (4.5-6.0); WHITE BLOOD COUNT (AUTO) 14.3 K/uL (4.3-11.0)
[2016-09-18 06:39] LABS: CALCIUM, SERUM 7.2 mg/dL (8.5-10.1); CREATININE 0.5 mg/dL (0.6-1.3); POTASSIUM 4.6 mmol/L (3.5-5.1)
[2016-09-18] MEDS: PANTOPRAZOLE 40 MG TABLET.DR PO SCH (06:42)
[2016-09-18] MEDS: INSULIN REGULAR, HUMAN 100 UNIT/ML 3 ML VIAL SQ PRN ×4 (06:44→22:01)
--- NOTE | 2016-09-18 06:59 | NUR ---
MS RN CLOSING NOTES: PATIENT IN BED RESTING. NO SOB OR SIGNS AND SYMPTOMS OF DISTRESS NOTED. BLOOD SUGAR WAS 131. 2 UNITS OF REGULAR INSULIN WAS GIVEN. PT KEPT CLEAN, DRY, AND COMFORTABLE. ALL NEEDS WERE ATTENDED. IV ON L FOREARM #18G AND IS PATENT AND INTACT. CALL LIGHT WITHIN PT'S REACH. BED KEPT IN LOCKED, LOWEST POSITION, AND SIDE RAILS X2 UP. FC OUTPUT WAS 1050ML. WILL ENDORSE TO AM NURSE FOR CONTINUITY OF CARE.
--- NOTE | 2016-09-18 07:30 | NUR ---
MS/RN OPENING NOTE PT.IS IN BED, AWAKE, A&OX4. NO SOB, NO S/S OF DISTRESS. PT. BREATHING IS EVEN AND UNLABORED ON ROOM AIR. PT. HAS A MONTEJO CATHETER WITH CLEAR AND YELLOW URINE FLOWING THROUGH. IV ACCESS ON RIGHT ANTECUBITAL SITE IS INTACT. PT. BED IS IN LOW POSITION, CALL LIGHT WITHIN REACH, 2 SIDE RAILS UP, AND ALL NEEDS ATTENDED TO.
[2016-09-18 08:00] VITALS: BP 111/71
[2016-09-18] MEDS ORDERED: SECONDARY IV SET 1 EA INFUS.SET MC ONE ×2 (08:40→21:22)
[2016-09-18] MEDS: DOXYCYCLINE 100 MG in IV D5W 100 ML IV SCH ×2 (09:03→21:39)
[2016-09-18] MEDS: MUPIROCIN OINT 2% 22 GM TUBE SCH ×2 (09:04→21:56)
[2016-09-18] MEDS: Z GUARD REMEDY 2 OZ OINT TP SCH (09:04)
[2016-09-18] MEDS: BACI/NEOM/POLY B OINT PKT 1 UDPKT PACKET TP SCH ×2 (09:04→17:09)
--- NOTE | 2016-09-18 13:07 | NUR ---
MS/SENIOR SQL SERVER DBA PT. 'S IV WAS LEAKING. PT. REFUSED TO HAVE A NEW IV HEP LOCK TO BE REINSERTED.
[2016-09-18] MEDS: SOD FERRIC GLUC 125 MG in IV NS 0.9% 100 ML IV SCH (14:00)
[2016-09-18 16:00] VITALS: BP 114/78
[2016-09-18] MEDS: RIVAROXABAN 10 MG TABLET PO SCH (17:09)
--- NOTE | 2016-09-18 17:22 | NUR ---
REMOVED MONTEJO CATHETER WITH 450 ML CLEAR YELLOW URINE OUTPUT.
[2016-09-18] MEDS: CEFTRIAXONE 1 G in IV D5W 50 ML IV SCH (18:00)
--- NOTE | 2016-09-18 18:33 | NUR ---
ANDRY HELD-PT REFUSED IV H/L REINSERTED INSPITE OF EXPLAINING ITS RISKS AND BENEFITS.
--- NOTE | 2016-09-18 19:30 | NUR ---
MS RN OPENING NOTES: PATIENT SITTING IN W/C, AOX4, ON ROOM AIR, BREATHING EVEN AND UNLABORED. BREATH SOUNDS CLEAR TO AUSCULTATION. PATIENT HAS NO PIV ACCESS AT THIS TIME. STATES THAT HE HAS AUSTYN HIP AND LOWER BACK PAIN SCALED AT 6-7/10. PATIENT TRANSFERRED TO BED WITH THREE PERSONNEL, PATIENT IS VERY WEAK. PROVIDED FOR COMFORT AND SAFETY. WILL CONT TO MONITOR.
--- NOTE | 2016-09-18 19:50 | NUR ---
MS/RN CLOSING NOTE PT. WAS PLANNED TO BE DISCHARGED HOME WITH HOME HEALTH. ACCORDING TO SHE SAID THAT HE DOES NOT LOOK READY TO GO HOME. PT. SAID SHE SPOKE WITH DR. CENTENO OVER THE PHONE AND THAT THE PT. CAN STAY A COUPLE OF DAYS. DISCHARGE WAS CANCELLED. PT. WAS BROUGHT BACK TO THE SAME ROOM. PT. IS SITTING IN WHEELCHAIR A&OX4. PT. IS NOT IN DISTRESS. NO SOB. PT.'S IS NEAR BEDSIDE. PT. MONTEJO CATHETER WAS REMOVED DUE TO DISCHARGE THAT WAS CANCELLED ACCORDING TO PT. . REPORT WAS ENDORSED TO DROP FORGE OPERATOR.
[2016-09-18 20:00] VITALS: BP 120/75
--- NOTE | 2016-09-18 21:21 | NUR ---
RN NOTES: NEW IV LINE STARTED OVER RAC G 22, PATENT TO FLUSH. WILL CONT TO MONITOR.
[2016-09-18] MEDS ORDERED: IV SET PRIMARY PUMP SET 1 EA INFUS.SET MC ONE (21:22)
[2016-09-18] MEDS ORDERED: IV NS 0.9% 250 ML IV ONE (21:22)
[2016-09-18] MEDS: MORPHINE SULFATE INJ 2 MG/ML DISP.SYRIN IV PRN (21:41)
--- NOTE | 2016-09-18 21:42 | NUR ---
RN NOTES: PATIENT COMPLAINED OF 8/10 PAIN OVER AUSTYN HIPS AND LOWER BACK. ADMINISTERED MORPHINE 2 MG IV PRN. WILL CONT TO MONITOR.
--- NOTE | 2016-09-18 22:00 | NUR ---
RN NOTES: PATIENT'S BS IS 163, ADMINISTERED 3 UNITS REGULAR INSULIN PER SS. GAVE LIGHT SNACK TO PATIENT AT THIS TIME. WILL CONT TO MONITOR.
--- NOTE | 2016-09-19 04:40 | NUR ---
RN NOTES: PATIENT STILL HAS NO URINE OUTPUT AT THIS TIME. ORAL FLUIDS GIVEN THROUGH NIGHT, AND ASSISTED PATIENT IN USING THE URINAL, HOWEVER, PATIENT STILL WAS NOT ABLE TO VOID. SUPRAPUBIC AREA NOTED TO BE DISTENDED. BLADDER SCAN DONE, SHOWED MORE THAN 445 ML URINE. CHARGE NURSE MADE AWARE. CALLED DR CENTENO RE URINARY RETENTION. AWAITING FOR CALL BACK.
--- NOTE | 2016-09-19 05:26 | NUR ---
RN NOTES: RECEIVED CALL BACK FROM DR CENTENO. PER MD, DO STRAIGHT CATHETERIZATION Q 6 HRS PRN FOR URINARY RETENTION. ORDER NOTED AND CARRIED OUT.
--- NOTE | 2016-09-19 06:43 | NUR ---
MS RN CLOSING NOTES: PATIENT IN BED, AOX4, ON ROOM AIR, BREATHING EVEN AND UNLABORED. APPEARS CALM AND IN NO DISTRESS. PATIENT WAS ABLE TO HELP IN STRAIGHT CATHETERIZATION, 400 ML OF NAKITA COLORED URINE TAKEN OUT. BLOOD GLUCOSE CHECKED AT 0630 AT 112 MG/DL, NO INSULIN COVERAGE NEEDED AT THIS TIME. PROVIDED FOR COMFORT AND SAFETY. CALL LIGHT WITHIN REACH. BED IN LOWEST AND LOCKED POSITION. WILL ENDORSE TO AM RN FOR LIZZY.
[2016-09-19] MEDS: BLOOD SUGAR DIAGNOSTIC 1 EACH STRIP IN SCH ×4 (06:59→21:49)
--- NOTE | 2016-09-19 07:30 | NUR ---
MS RN NOTES RECEIVED PATIENT AWAKE ON BED, AOX4,ON RA, BREATHING EVEN AND NON LABORED, DENIES ANY PAIN AT THIS TIME. CALL LIGHT WITHIN REACH, BED IN LOW POSITION FOR SAFETY MEASURES. WILL CONTINUE TO MONITOR.
[2016-09-19 08:00] VITALS: BP 123/72
[2016-09-19] MEDS: PANTOPRAZOLE 40 MG TABLET.DR PO SCH (09:00)
[2016-09-19] MEDS: Z GUARD REMEDY 2 OZ OINT TP SCH (09:00)
[2016-09-19] MEDS: DOXYCYCLINE 100 MG in IV D5W 100 ML IV SCH ×2 (09:00→20:37)
--- NOTE | 2016-09-19 09:00 | NUR ---
STATIONARY ENGINEER SUPERVISOR NOTES DUE MEDS GIVEN.
[2016-09-19] MEDS: NEOMY SULF/BACITRAC ZN/POLY 15 GM TUBE TP SCH ×2 (10:28→17:16)
[2016-09-19] MEDS: MUPIROCIN OINT 2% 22 GM TUBE SCH ×2 (10:28→20:38)
[2016-09-19] MEDS: MORPHINE SULFATE INJ 2 MG/ML DISP.SYRIN IV PRN ×2 (10:29→21:57)
[2016-09-19] MEDS: INSULIN REGULAR, HUMAN 100 UNIT/ML 3 ML VIAL SQ PRN ×3 (11:49→21:57)
[2016-09-19] MEDS ORDERED: SECONDARY IV SET 1 EA INFUS.SET MC ONE ×2 (15:08→17:14)
[2016-09-19] MEDS: SOD FERRIC GLUC 125 MG in IV NS 0.9% 100 ML IV SCH (15:10)
--- NOTE | 2016-09-19 15:40 | NUR ---
MS RN NOTES C/O PAIN, MORPHINE 2 MG IVP GIVEN ORDERED.
[2016-09-19 16:00] VITALS: BP 129/83
[2016-09-19] MEDS: RIVAROXABAN 10 MG TABLET PO SCH (17:11)
[2016-09-19] MEDS: CEFTRIAXONE 1 G in IV D5W 50 ML IV SCH (17:42)
--- NOTE | 2016-09-19 18:58 | NUR ---
MS RN NOTES ALL NEEDS ATTENDED AND ANTICIPATED. ENDORSED TO INCOMING SHIFT FOR CONTINUITY OF CARE.
[2016-09-19 19:00] VITALS: BP 134/85
--- NOTE | 2016-09-19 19:30 | NUR ---
MS RN OPENING NOTES: PATIENT IN BED, AOX4, ON ROOM AIR, BREATHING EVEN AND UNLABORED. APPEARS CALM AND IN NO DISTRESS, DENIES ANY PAIN AT THIS TIME. PIV OVER RFA G 22 INTACT AND PATENT TO FLUSH. BED IN LOWEST AND LOCKED POSITION, SIDERAILS UP X 3. PER PATIENT, HE WAS ABLE TO VOID USING HIS DIAPER EARLIER, BUT WAS UNABLE TO RECALL EXACT TIME. SUPRAPUBIC AREA NOT DISTENDED AT THIS TIME. WILL CONT TO MONITOR FOR URINARY RETENTION.
[2016-09-19 22:00] VITALS: BP 134/85
--- NOTE | 2016-09-19 22:00 | NUR ---
RN NOTES: PATIENT C/O 8/10 PAIN OVER AUSTYN HIPS NAD LOWER BACK. ADMINISTERED MORPHINE 2 MG IV PRN. WILL CONT TO MONITOR.
--- NOTE | 2016-09-19 23:31 | NUR ---
RN NOTES: STRAIGHT CATHETER DONE ON PATIENT USING STERILE TECHNIQUE. 600 ML NAKITA COLORED URINE TAKEN.
[2016-09-20] MEDS ORDERED: LEVOFLOXACIN (500MG) 500 MG TABLET ONE (05:49)
[2016-09-20] MEDS: LEVOFLOXACIN (500MG) 500 MG TABLET PO SCH (06:41)
[2016-09-20] MEDS: PANTOPRAZOLE 40 MG TABLET.DR PO SCH (06:41)
[2016-09-20] MEDS: BLOOD SUGAR DIAGNOSTIC 1 EACH STRIP IN SCH ×4 (06:41→21:00)
[2016-09-20] MEDS: INSULIN REGULAR, HUMAN 100 UNIT/ML 3 ML VIAL SQ PRN ×4 (06:44→21:03)
--- NOTE | 2016-09-20 06:53 | NUR ---
MS RN CLOSING NOTES: PATIENT IN BED, AOX4. ON ROOM AIR, BREATHING EVEN AND UNLABORED. IN NO APPARENT DISTRESS. PIV OVER RFA G22 INTACT AND PATENT. BLOOD SUGAR CHECKED AT 160 MG/DL, COVRED WITH 2 UNITS REGULAR INSULIN. PROVIDED FOR COMFORT AND SAFETY. STRAIGHT CATHETERIZATION DONE THIS AM, 250 CC NAKITA COLORED URINE TAKEN. NO ACUTE CHANGE IN CONDITION NOTED. PROVIDED FOR COMFORT AND SAFETY. CALL LIGHT WITHIN REACH. BED IN LOWEST AND LOCKED POSITION. WILL ENDORSE TO AM RN FOR LIZZY.
--- NOTE | 2016-09-20 07:10 | NUR ---
MS RN Initial notes Received patient in bed, awake, head of bed elevated, no SOB or distress noted. on room air and tolerated well. IV on the RFA G22 intact and patent HL only. Alert and oriented x 4, verbally responsive and able to make needs known. Kept patient clean and comfortable in bed, call light with in patient reach, will continue to monitor accordingly.
[2016-09-20 07:46] LABS: BASOPHILS % (AUTO) 0.1 % (0.0-2.0); EOSINOPHILS # (AUTO) 0.1 /CMM (0.0-0.7); EOSINOPHILS % (AUTO) 0.9 % (0.0-6.0); HEMATOCRIT 30 % (39-51); HEMOGLOBIN 9.8 g/dL (13.5-17.5); LYMPHOCYTES # (AUTO) 0.7 /CMM (0.8-4.8); LYMPHOCYTES % (AUTO) 4.5 % (20.0-44.0); MEAN CORPUSCULAR HEMOGLOBIN 34 PG (26.0-33.0); MEAN CORPUSCULAR HGB CONC 33 g/dl (31.0-36.0); MEAN CORPUSCULAR VOLUME 104 fL (80-96); MONOCYTES % (AUTO) 6.5 % (2.0-12.0); NEUTROPHILS # (AUTO) 13.5 /CMM (1.8-8.9); PLATELET COUNT (AUTO) 260 /CMM (150-450); RDW COEFFICIENT OF VARIATION 21.7 (11.5-15.0); RED BLOOD CELL COUNT(AUTO) 2.89 MIL/uL (4.5-6.0); WHITE BLOOD COUNT (AUTO) 15.3 K/uL (4.3-11.0)
[2016-09-20 08:00] VITALS: BP_SYST 123; BP_SYST 98; BP_DIAS 54; BP_DIAS 75
[2016-09-20 08:27] LABS: CALCIUM, SERUM 7.2 mg/dL (8.5-10.1); CREATININE 0.5 mg/dL (0.6-1.3); POTASSIUM 4.6 mmol/L (3.5-5.1)
[2016-09-20] MEDS: Z GUARD REMEDY 2 OZ OINT TP SCH (08:55)
[2016-09-20] MEDS: DOXYCYCLINE 100 MG in IV D5W 100 ML IV SCH ×2 (08:55→20:46)
[2016-09-20] MEDS: MUPIROCIN OINT 2% 22 GM TUBE SCH ×2 (08:56→20:53)
[2016-09-20] MEDS: NEOMY SULF/BACITRAC ZN/POLY 15 GM TUBE TP SCH ×2 (08:56→17:15)
[2016-09-20 10:53] LABS: ANISOCYTOSIS 2+; PLATELET ESTIMATE ADEQUATE
[2016-09-20] MEDS: SOD FERRIC GLUC 125 MG in IV NS 0.9% 100 ML IV SCH (15:09)
[2016-09-20 16:00] VITALS: BP 116/73
[2016-09-20] MEDS: CEFTRIAXONE 1 G in IV D5W 50 ML IV SCH (17:15)
[2016-09-20] MEDS: RIVAROXABAN 10 MG TABLET PO SCH (17:16)
[2016-09-20 19:00] VITALS: BP 118/91
--- NOTE | 2016-09-20 19:17 | NUR ---
ms rn closing notes All needs provided, attended, and anticipated. Kept patient clean and comfortable in bed, call light within patient reach, will continue to monitor accordingly. Endorsed to next shift RN to continue care.
--- NOTE | 2016-09-20 19:28 | NUR ---
MS RN OPENING NOTES: PATIENT IN BED, AOX4, ON ROOM AIR, BREATHING EVEN AND UNLABORED. APPEARS CALM AND IN NO DISTRESS. DENIES ANY PAIN AT THIS TIME. PIV OVER LFA G22 INTACT AND PATENT TO FLUSH. PROVIDED FOR COMFORT AND SAFETY. BED IN LOWEST AND LOCKED POSITION. SIDERAILS UP X 3. WILL CONT TO MONITOR.
[2016-09-20 20:00] VITALS: BP 118/91
--- NOTE | 2016-09-20 22:00 | NUR ---
RN NOTES: BLOOD SUGAR CHECKED AT 193 MG/DL. ADMINISTERED 3 UNITS REGULAR INSULIN PER SCALE AND GAVE SNACK.
--- NOTE | 2016-09-21 00:30 | NUR ---
RN NOTES: STRAIGHT CATHETERIZATION DONE ON PATIENT, NOTED 400 ML CLOUDY NAKITA URINE. WILL CONT TO MONITOR.
[2016-09-21] MEDS: LEVOFLOXACIN (500MG) 500 MG TABLET PO SCH (06:04)
[2016-09-21] MEDS: PANTOPRAZOLE 40 MG TABLET.DR PO SCH (06:42)
[2016-09-21] MEDS: BLOOD SUGAR DIAGNOSTIC 1 EACH STRIP IN SCH ×4 (06:42→21:29)
[2016-09-21] MEDS: INSULIN REGULAR, HUMAN 100 UNIT/ML 3 ML VIAL SQ PRN ×4 (06:45→21:38)
--- NOTE | 2016-09-21 06:49 | NUR ---
MS RN CLOSING NOTES: PATIENT IN BED, AOX4, ON ROOM AIR, BREATHING EVEN AND UNLABORED. IN NO APPARENT DISTRESS. DENIES PAIN AT THIS TIME. BLOOD SUGAR CHECKED AT 166 MG/DL, COVERED WITH 3 UNITS REGULAR INSULIN PER SCALE. PROVIDED FOR COMFORT AND SAFETY. DUE MEDS GIVEN. PROVIDED FOR COMFORT AND SAFETY. ASSISTED WITH STRAIGHT CATHETERIZATIONS NEEDED. BED IN LOWEST AND LOCKED POSITION, SIDERAILS UP X3, CALL LIGHT WITHIN REACH. WILL ENDORSE TO AM RN FOR LIZZY.
--- NOTE | 2016-09-21 07:30 | NUR ---
AM RN NOTE Received patient sleeping comfortably in his bed arouses upon touch. No SOB noted resp even and non-labored. IV site intact and patent. Bed in low locked position. Will continue to monitor.
[2016-09-21 08:00] VITALS: BP 116/69
[2016-09-21] MEDS: DOXYCYCLINE 100 MG in IV D5W 100 ML IV SCH ×2 (09:02→21:27)
[2016-09-21] MEDS: MUPIROCIN OINT 2% 22 GM TUBE SCH ×2 (09:03→21:27)
[2016-09-21] MEDS: NEOMY SULF/BACITRAC ZN/POLY 15 GM TUBE TP SCH ×2 (09:03→17:45)
[2016-09-21] MEDS: Z GUARD REMEDY 2 OZ OINT TP SCH (09:04)
[2016-09-21] MEDS: SOD FERRIC GLUC 125 MG in IV NS 0.9% 100 ML IV SCH (13:47)
[2016-09-21 16:00] VITALS: BP 111/68
[2016-09-21] MEDS: CEFTRIAXONE 1 G in IV D5W 50 ML IV SCH (17:42)
[2016-09-21] MEDS: RIVAROXABAN 10 MG TABLET PO SCH (17:43)
--- NOTE | 2016-09-21 18:30 | NUR ---
SUZY NUNEZ NOTE Patient lying in his bed. Denies any pain or discomfort at this time. IV site intact and patent. Will endorse care to next shift. Addendum: 09/22/16 at 0958 by HARI WHITTINGTON RN late entry 09/21/16 @1700 Straight cath done per pt request 400 ml output.
--- NOTE | 2016-09-21 19:30 | NUR ---
RN NOTE; RECEIVED PT IN BED AWAKE AND ALERT. BREATHING EVENLY NO SOB. NO DISTRESS. SKIN WARM AND DRY. NO C/O PAIN OR DISCOMFORT. W/ C/O ONGOING DIARRHEA. PER PT IT'S NO SOMETHING NEW AND HE HAD IT ON AND OFF FOR A WHILE. NO OTHER COMPLAIN OR ISSUES. NEEDS ATTENDED. ASSISTED W/ ADLS. CALL LIGHT WITHIN REACH. WILL CONT TO MONITOR,
[2016-09-21 20:00] VITALS: BP_SYST 105; BP_SYST 114; BP_DIAS 68; BP_DIAS 72
[2016-09-21] MEDS ORDERED: IV NS 0.9% 250 ML IV ONE (21:29)
[2016-09-22] MEDS: MORPHINE SULFATE INJ 2 MG/ML DISP.SYRIN IV PRN (00:19)
--- NOTE | 2016-09-22 00:19 | NUR ---
MORPHINE GIVEN PER PT'S REQUEST FOR C/O GENERALIZED BODY PAIN AND L ARM PAIN. WILL CONT TO MONITOR
--- NOTE | 2016-09-22 00:41 | NUR ---
STRAIGHT CATH DONE AT THE BED SIDE W/ 400ML OUT PUT. PT TOLERATED THE PROCEDURE WELL . WILL CONT TO MONITOR,
--- NOTE | 2016-09-22 00:53 | NUR ---
STRAIGHT CATH PER PT'S REQUEST AND NURSE ASSESSMENT PRN Addendum: 09/22/16 at 0109 by LAMAR FREEDMAN RN Amended: Links added.
--- NOTE | 2016-09-22 06:38 | NUR ---
RN NOTE; PT IN BED AWAKE AND ALERT, BREATHING EVENLY. NO ACUTE EVENT DURING THE NIGHT. AFEBRILE. NO C/O PAIN OR DISCOMFORT . ON ONGOING IV ATBS W/ NO A/R. NEEDS ATTENDED. ASSISTED W/ ADLS. CALL LIGHT WITHIN REACH, WILL CONT TO MONITOR AND WILL ENDORSE TO AM SHIFT FOR LIZZY.
[2016-09-22 06:40] LABS: BASOPHILS % (AUTO) 0.3 % (0.0-2.0); EOSINOPHILS # (AUTO) 0.2 /CMM (0.0-0.7); HEMATOCRIT 30 % (39-51); HEMOGLOBIN 9.7 g/dL (13.5-17.5); LYMPHOCYTES # (AUTO) 0.9 /CMM (0.8-4.8); LYMPHOCYTES % (AUTO) 7.8 % (20.0-44.0); MEAN CORPUSCULAR HEMOGLOBIN 34 PG (26.0-33.0); MEAN CORPUSCULAR HGB CONC 32 g/dl (31.0-36.0); MEAN CORPUSCULAR VOLUME 105 fL (80-96); MONOCYTES % (AUTO) 8.6 % (2.0-12.0); NEUTROPHILS # (AUTO) 9.8 /CMM (1.8-8.9); NEUTROPHILS % (AUTO) 81.3 % (43.0-81.0); PLATELET COUNT (AUTO) 311 /CMM (150-450); RDW COEFFICIENT OF VARIATION 20.1 (11.5-15.0); RED BLOOD CELL COUNT(AUTO) 2.84 MIL/uL (4.5-6.0)
[2016-09-22] MEDS: LEVOFLOXACIN (500MG) 500 MG TABLET PO SCH (06:42)
[2016-09-22] MEDS: BLOOD SUGAR DIAGNOSTIC 1 EACH STRIP IN SCH ×4 (06:45→21:19)
[2016-09-22 06:50] LABS: BILIRUBIN,TOTAL 0.5 mg/dL (0.2-1.0); CALCIUM, SERUM 6.8 mg/dL (8.5-10.1); CREATININE 0.5 mg/dL (0.6-1.3); POTASSIUM 3.7 mmol/L (3.5-5.1); TOTAL PROTEIN, SERUM 4.9 g/dL (6.4-8.2)
[2016-09-22 07:00] VITALS: BP 112/69
[2016-09-22 07:48] LABS: ALBUMIN 1.3 g/dL (3.4-5.0); MAGNESIUM 1.2 mg/dL (1.8-2.4)
[2016-09-22 08:00] VITALS: BP 112/69
--- NOTE | 2016-09-22 08:11 | NUR ---
MS/RN OPENING NOTE PT IS IN BED AWAKE, A&OX4. NO S/S OF DISTRESS. PT. BREATHING IS UNLABORED, AND NO SOB. PT. HAS A RIGHT WRIST IV ACCESS. PT. DID NOT C/O PAIN. BED IS IN LOW POSITION, 2 SIDE RAILS UP, ALL NEEDS ATTENDED TO, AND CALL LIGHT WITHIN REACH. WILL CONTINUE TO MONITOR PT.
--- NOTE | 2016-09-22 08:32 | NUR ---
WOUND CARE CONSULT: PT SEEN FOR RE-EVALUATION OF LEFT ARM SKIN TEAR WHICH IS HEALING. RECOMMEND CONTINUE PRESENT TREATMENT. DISCUSSED WITH NURSING STAFF. PT ABLE TO ASSIST WITH REPOSITIONING IN BED. ALL SKIN PROTECTION MEASURES IN PLACE. PT ON LATOSHA ISOFLEX LOW AIRLOSS BED. WILL SEE PRN. COLE IN AGREEMENT WITH PLAN OF CARE.
[2016-09-22] MEDS: PANTOPRAZOLE 40 MG TABLET.DR PO SCH (09:20)
[2016-09-22] MEDS: Z GUARD REMEDY 2 OZ OINT TP SCH (09:22)
[2016-09-22] MEDS: MUPIROCIN OINT 2% 22 GM TUBE SCH ×2 (09:23→21:17)
[2016-09-22] MEDS: NEOMY SULF/BACITRAC ZN/POLY 15 GM TUBE TP SCH ×2 (09:23→16:42)
--- NOTE | 2016-09-22 11:00 | NUR ---
MS/RN POST PHYSICAL THERAPY CONDITION AFTER 15 MINUTES OF PHYSICAL THERAPY, PT. IS IN WHEELCHAIR SITTING UP. PT. STARTED C/O CHEST PAIN, AND SOB. VITAL SIGNS WERE CHECKED, AND WERE STABLE. PAIN LEVEL 6/10. PT. WAS ASSISTED BACK INTO BED. PT. WAS OFFERED MORPHINE AND TYLENOL. TYLENOL WAS GIVEN FOR PAIN. 30 MINUTES LATER, PT. EXPRESSED HE FEELING BETTER, NO S/S OF SOB, AND CHEST PAIN.
[2016-09-22] MEDS: INSULIN REGULAR, HUMAN 100 UNIT/ML 3 ML VIAL SQ PRN ×3 (12:22→21:24)
[2016-09-22] MEDS ORDERED: SECONDARY IV SET 1 EA INFUS.SET MC ONE (12:28)
[2016-09-22] MEDS: Magnesium 1GM/D5W 100ML PREMIX 100 ML IV SCH ×4 (13:49→18:07)
[2016-09-22 16:00] VITALS: BP 114/73
[2016-09-22] MEDS: RIVAROXABAN 10 MG TABLET PO SCH (16:44)
[2016-09-22] MEDS: SOD FERRIC GLUC 125 MG in IV NS 0.9% 100 ML IV SCH (18:56)
--- NOTE | 2016-09-22 19:30 | NUR ---
MS/RN CLOSING NOTE PT. IS IN BED AWAKE, A&OX4. NO S/S OF DISTRESS, NO SOB, BREATHING IS EVEN AND UNLABORED. PT. DOES NOT C/O PAIN. MAGNESIUM IS INFUSING ON THE RIGHT WRIST IV ACCESS SITE. PT. HAD A STRAIGHT CATHETERIZATION AT 1530 WITH 600ML OUTPUT. PT. IS IN STABLE CONDITION. BED IS IN LOW POSITION, 2 SIDE RAILS UP, CALL LIGHT WITHIN REACH, AND ALL NEEDS ATTENDED TO. WILL ENDORSE REPORT TO NURSES EDUCATOR NURSE.
--- NOTE | 2016-09-22 19:30 | NUR ---
RN NOTE; RECEIVED PT IN BED AWAKE AND ALERT. BREATHING EVENLY. NOSOB. NO DISTRESS. NO C/P PAIN OR DISCOMFORT. STATED FEELING BETTER BUT STILL A LITTLE WEAK. DENIED ANY PAIN OR DISCOMFORT. NEEDS ATTENDED. CALL LIGHT WITHIN REACH. WILL CONT TO MONITOR.
[2016-09-22 20:00] VITALS: BP 118/74
--- NOTE | 2016-09-23 00:30 | NUR ---
STRAIGHT CATH DONE AT THE BED SIDE W/ 400ML OUT PUT. PT TOLERATED THE PROCEDURE WELL . WILL CONT TO MONITOR,
[2016-09-23] MEDS: LEVOFLOXACIN (500MG) 500 MG TABLET PO SCH (06:44)
[2016-09-23] MEDS: BLOOD SUGAR DIAGNOSTIC 1 EACH STRIP IN SCH ×2 (06:45→12:53)
[2016-09-23] MEDS: INSULIN REGULAR, HUMAN 100 UNIT/ML 3 ML VIAL SQ PRN ×2 (06:46→12:55)
--- NOTE | 2016-09-23 06:55 | NUR ---
RN NOTE; PT IN BED AWAKE AND ALERT. BREATHING EVENLY. NO SOB. NO DISTRESS. SKIN WARM AND DRY. NO ACUTE CHANGES OVER THE NIGHT . STRAIGHT CATH DONE W/ 700ML OUT PUT. NEEDS ATTENDED, ASSISTED W/ ADLS . CALL LIGHT WITHIN REACH. WILL CONT TO MONITOR AND WILL ENDORSE TO AM SHIFT FOR LIZZY.
--- NOTE | 2016-09-23 07:30 | NUR ---
ms rn received on bed, awake,alert,oriented x3,not in any form of distress, respirations even and unlabored,no sob noted, lungs are clear,abdomen soft,positive bowel sounds,denies pain at this time, will monitor patient's condition,all needs attended.
[2016-09-23 07:32] LABS: CALCIUM, SERUM 6.7 mg/dL (8.5-10.1); CREATININE 0.6 mg/dL (0.6-1.3); MAGNESIUM 1.6 mg/dL (1.8-2.4); POTASSIUM 4.2 mmol/L (3.5-5.1)
[2016-09-23 08:00] VITALS: BP 106/64
--- NOTE | 2016-09-23 08:30 | NUR ---
ms fan breakfast served,due meds given,tolerated well,.
[2016-09-23] MEDS: PANTOPRAZOLE 40 MG TABLET.DR PO SCH (10:02)
--- NOTE | 2016-09-23 11:00 | NUR ---
ms rn up w/ pt,walks w/ walker,no distress noted.
--- NOTE | 2016-09-23 11:20 | NUR ---
ms rn was seen by ernie ramirez/ dipak to go to [facility] today.
[2016-09-23] MEDS ORDERED: SECONDARY IV SET 1 EA INFUS.SET MC ONE (12:48)
[2016-09-23] MEDS: Magnesium 1GM/D5W 100ML PREMIX 100 ML IV SCH ×2 (12:53→14:04)
[2016-09-23] MEDS: MUPIROCIN OINT 2% 22 GM TUBE SCH (12:54)
[2016-09-23] MEDS: NEOMY SULF/BACITRAC ZN/POLY 15 GM TUBE TP SCH (12:54)
[2016-09-23] MEDS: Z GUARD REMEDY 2 OZ OINT TP SCH (12:58)
--- NOTE | 2016-09-23 14:35 | NUR ---
ms rn patient went to [facility], no distress noted, all needs attended.
== END 2016-09-23 14:05 | DRG 872 ==
LOC: EDUNIT# 08:00 → ER 08:02 → MED 10:03
PROVIDERS: ADMIT Legal Medicine; ATTEND Legal Medicine
PROC: 30233N1 Transfusion of Nonautologous Red Blood Cells into Peripheral Vein, Percutaneous Approach (ICD-10-PCS; principal; 2016-09-17)
DX: A41.9 Sepsis, unspecified organism (principal); N39.0 Urinary tract infection, site not specified; D62 Acute posthemorrhagic anemia; C25.9 Malignant neoplasm of pancreas, unspecified; E11.9 Type 2 diabetes mellitus without complications; E11.22 Type 2 diabetes mellitus with diabetic chronic kidney disease; E11.42 Type 2 diabetes mellitus with diabetic polyneuropathy; E11.621 Type 2 diabetes mellitus with foot ulcer; Z86.718 Personal history of other venous thrombosis and embolism; Z86.73 Personal history of transient ischemic attack (TIA), and cerebral infarction without residual deficits; Z88.0 Allergy status to penicillin; R55 Syncope and collapse; L85.3 Xerosis cutis; S90.414A Abrasion, right lesser toe(s), initial encounter; X58.XXXA Exposure to other specified factors, initial encounter; Y93.9 Activity, unspecified; Y92.009 Unspecified place in unspecified non-institutional (private) residence as the place of occurrence of the external cause; Y99.9 Unspecified external cause status; Z22.322 Carrier or suspected carrier of Methicillin resistant Staphylococcus aureus; R33.9 Retention of urine, unspecified; R53.1 Weakness; B96.1 Klebsiella pneumoniae [K. pneumoniae] as the cause of diseases classified elsewhere; L97.519 Non-pressure chronic ulcer of other part of right foot with unspecified severity; N41.9 Inflammatory disease of prostate, unspecified; W19.XXXA Unspecified fall, initial encounter; E11.51 Type 2 diabetes mellitus with diabetic peripheral angiopathy without gangrene; I12.9 Hypertensive chronic kidney disease with stage 1 through stage 4 chronic kidney disease, or unspecified chronic kidney disease; N18.9 Chronic kidney disease, unspecified; I25.10 Atherosclerotic heart disease of native coronary artery without angina pectoris
CPT/HCPCS: 36415; 70450-TC; 71010-TC; 76770-TC; 76870-TC; 80048-TC; 80053-TC; 80076-TC; 81000-TC; 82962-TC; 83605-TC; 83690-TC; 83735-TC; 84153-TC; 84484-TC; 85025-TC; 85730-TC; 86301; 86850-TC; 86921-TC; 87040-TC; 87081-TC; 87086-TC; 87186-TC; 97001-TC; 97003-TC; 97110-TC; 97116-TC; 97530-TC; A4606; A6402; A6403; C9113; J0696; J1580; J1815; J1956; J2270; J2916; J3475; J3490; J7030; J7050; J7060; P9016-BL; Z7610

== ENCOUNTER 2016-10-26 14:00 | Inpatient (IN) | payer MEDICARE, BC, OTHER ==
[~2016-10-26] VITALS: Ht 190.5 cm; Wt 103.0 kg
--- NOTE | 2016-10-26 14:05 | NUR ---
BB : WEAKNESS, DISTENDED ABDOMEN, DIARRHEA, FLU SYMPTOMS. GOWNED PT . PLACED ON MONITOR. VSS. AWAITING MD ORDER
--- NOTE | 2016-10-26 14:05 | NUR ---
[facility] #18 IV ACCESS. PT HAS MONTEJO CLOUDY URINE.
[2016-10-26 14:54] LABS: BASOPHILS # (AUTO) 0.4 /CMM (0.0-0.2); BASOPHILS % (AUTO) 1.7 % (0.0-2.0); EOSINOPHILS % (AUTO) 0.2 % (0.0-6.0); HEMATOCRIT 28 % (39-51); HEMOGLOBIN 9.4 g/dL (13.5-17.5); LYMPHOCYTES # (AUTO) 0.4 /CMM (0.8-4.8); LYMPHOCYTES % (AUTO) 1.7 % (20.0-44.0); MEAN CORPUSCULAR HEMOGLOBIN 36 PG (26.0-33.0); MEAN CORPUSCULAR HGB CONC 33 g/dl (31.0-36.0); MEAN CORPUSCULAR VOLUME 107 fL (80-96); MONOCYTES % (AUTO) 0.1 % (2.0-12.0); NEUTROPHILS # (AUTO) 22.3 /CMM (1.8-8.9); NEUTROPHILS % (AUTO) 96.3 % (43.0-81.0); PLATELET COUNT (AUTO) 418 /CMM (150-450); RDW COEFFICIENT OF VARIATION 18.1 (11.5-15.0); RED BLOOD CELL COUNT(AUTO) 2.63 MIL/uL (4.5-6.0); WHITE BLOOD COUNT (AUTO) 23.1 K/uL (4.3-11.0)
[2016-10-26 15:01] LABS: CALCIUM, SERUM 7.6 mg/dL (8.5-10.1); CARBON DIOXIDE 28 mmol/L (21-32); CHLORIDE 103 mmol/L (98-107); CREATININE 0.6 mg/dL (0.6-1.3); GLUCOSE 294 mg/dL (74-106); SODIUM SERUM 135 mmol/L (136-145); UREA NITROGEN, BLOOD 11 mg/dL (7-18)
[2016-10-26 15:04] LABS: APPEARANCE,URINE Cloudy (CLEAR); BILIRUBIN,URINE Negative (NEGATIVE); BLOOD, URINE Moderate Ery/uL (NEGATIVE); COLOR,URINE Yellow (YELLOW); KETONES,URINE Negative (NEGATIVE); LEUKOCYTE ESTERASE ,URINE Trace (NEGATIVE); NITRITE, URINE Negative (NEGATIVE); PH,URINE 5.5 (5.0-8.0); PROTEIN,URINE Trace mg/dl (NEGATIVE); UGLUCOSE 500 MG/DL mg/dL (NEGATIVE); UROBILINOGEN,URINE 0.2 EU/dL (0.2)
[2016-10-26 15:06] LABS: INR 1.1 (0.87-1.13); PROTHROMBIN TIME 11.5 SECS (9.5-12.7)
[2016-10-26 15:07] LABS: ALANINE AMINOTRANSFERASE 14 U/L (12-78); ALBUMIN 1.6 g/dL (3.4-5.0); ALKALINE PHOSPHATASE 242 U/L (46-116); ASPARTATE AMINOTRANSFERASE 30 U/L (15-37); BILIRUBIN,DIRECT 0.2 mg/dL (0.0-0.2); BILIRUBIN,TOTAL 0.5 mg/dL (0.2-1.0); TOTAL PROTEIN, SERUM 5.5 g/dL (6.4-8.2)
[2016-10-26 15:09] LABS: BACTERIA,URINE Many /HPF (None Seen); SQUAMOUS EPITHELIAL CELL,UR Rare /HPF (None Seen); WBC,URINE 80-100 /HPF (0-3)
[2016-10-26 15:10] LABS: TROPONIN I < 0.017 ng/mL (0.00-0.056)
[2016-10-26] MEDS ORDERED: LEVO25TA9 PO (15:31)
[2016-10-26] MEDS ORDERED: RIVA10TA PO (15:31)
[2016-10-26] MEDS ORDERED: LEVOFLOXACIN 750 MG /D5W 150ML 150 ML IV ONE ×2 (15:36→16:00)
[2016-10-26] MEDS ORDERED: IV SET PRIMARY PUMP SET 1 EA INFUS.SET MC ONE ×2 (15:36→20:53)
--- NOTE | 2016-10-26 16:59 | NUR ---
GAVE REPORT TO SAY NUNEZ MEDSURG DR CENTENO DX UTI. TRASNFER VIA YARA BY ERT
[2016-10-26 18:00] VITALS: BP 133/57
--- NOTE | 2016-10-26 18:05 | NUR ---
MED-CHARGE PREPARATION TECHNICIAN NOTE RCVD PT AWAKE AND ALERT, SHOWING NO S/O DISTRESS OR C/O PAIN. ON RA TOLERATING WELL. PT'S AT BEDSIDE [facility] C/D/I/PATENT. NOS/O INFILTRATION OR PHLEBITIS OBSERVED UPON FLUSHING. HX PROVIDED BY PT. PT WAS CLEANED UPON ADMISSION,GOWN AND LINENS CHANGED DUE TO SOILING. MONTEJO IN PLACE DRAINING CRANBERRY COLORED URINE.
[2016-10-26] MEDS ORDERED: IV NS 0.9% 1,000 ML IV PRN (19:00)
[2016-10-26] MEDS ORDERED: ACETAMINOPHEN 325 MG TABLET PO PRN (19:00)
[2016-10-26] MEDS ORDERED: ONDANSETRON HCL/PF 4 MG/2 ML VIAL IV PRN (19:00)
--- NOTE | 2016-10-26 19:25 | NUR ---
RN OPENING NOTES: RECEIVED PT ON BED AWAKE ALOX4 AND VERBALLY RESPONSIVE, ON ROOM AIR NOT IN APPARENT DISTRESS. IV ACCESS ON ANISH MIDLINE INTACT. FC DRAINING TO A CLOSED SYSTEM, NOTED URINE TO BE PINKISH, WITH SEDIMENTS. NO COMPLAINTS OF PAIN AT THIS TIME. SAFETY MEASURES ENSURED. TO CARRY OUT DR CENTENO'S ORDER. CONTINUOUSLY MONITORED PT. 2029 RN NOTES: LAB RELAYED ALBUMIN LEVELS OF 1.4 CRITICAL VALUE. ALSO NOTED MAG LEVEL IS 1.5 ALSO LOW. LEFT A MESSAGE TO DR CENTENO'S PAGER. AWAITING FOR ORDERS. 2229 RECEIVED REPLY FROM . WITH ORDERS TO REPLACE MAGNESIUM IV 2 GRAMS IN 2 HOURS. NOTED AND CARRIED OUT. HEAD COOK AWARE. PATIENT MADE AWARE. CONTINUOUSLY MONITORED PATIENT.
[2016-10-26] MEDS ORDERED: INSULIN REGULAR, HUMAN 100 UNIT/ML 3 ML VIAL SQ PRN (19:30)
[2016-10-26] MEDS ORDERED: DEXTROSE 50%-WATER 50 ML DISP.SYRIN IV PRN ×2 (19:30)
[2016-10-26 20:00] VITALS: BP 123/72
[2016-10-26 20:15] LABS: BILIRUBIN,TOTAL 0.4 mg/dL (0.2-1.0); CREATININE 0.5 mg/dL (0.6-1.3); MAGNESIUM 1.5 mg/dL (1.8-2.4); PHOSPHORUS 2.5 mg/dL (2.5-4.9); POTASSIUM 4.1 mmol/L (3.5-5.1); TOTAL PROTEIN, SERUM 4.8 g/dL (6.4-8.2)
[2016-10-26 20:24] LABS: ALBUMIN 1.4 g/dL (3.4-5.0)
[2016-10-26] MEDS ORDERED: SECONDARY IV SET 1 EA INFUS.SET MC ONE ×2 (20:54→23:18)
[2016-10-26] MEDS: CEFTRIAXONE 1 G in IV D5W 50 ML IV SCH (20:59)
[2016-10-26] MEDS ORDERED: ENOXAPARIN SODIUM 40 MG/0.4 ML DISP.SYRIN SQ SCH (21:00)
[2016-10-26] MEDS: INSULIN REGULAR, HUMAN 100 UNIT/ML 3 ML VIAL SQ PRN (21:16)
[2016-10-26] MEDS: BLOOD SUGAR DIAGNOSTIC 1 EACH STRIP IN SCH (21:20)
[2016-10-26] MEDS ORDERED: BLOOD SUGAR DIAGNOSTIC 1 EACH STRIP IN SCH (22:00)
[2016-10-26] MEDS ORDERED: Magnesium 1GM/D5W 100ML PREMIX PIGGYBACK IV ONE (23:00)
[2016-10-26] MEDS ORDERED: Magnesium 1GM/D5W 100ML PREMIX 200 ML IV ONE (23:07)
[2016-10-27] VITALS (14 sets, daily range): BP systolic 123–147; BP diastolic 66–79
[2016-10-27] MEDS ORDERED: Magnesium 1GM/D5W 100ML PREMIX PIGGYBACK IV ONE
--- NOTE | 2016-10-27 00:30 | NUR ---
RN NOTES: PATIENT WITH COMPLAINTS OF PAIN OVER PENILE SHAFT WHERE FC IS INSERTED. ADJUSTED FC FOR RELIEF. REQUESTED TO PRN PAIN MEDS TO AID IN MILD PAIN. TYLENOL ORDERED. PER PATIENT HE WAS GETTING NORCO AND/ OR MORPHINE BEFORE. TO FOLLOW UP WITH MD IN AM, PATIENT AWARE. CONTINUOUSLY MONITORED PT.
[2016-10-27 06:27] LABS: BASOPHILS % (AUTO) 0.1 % (0.0-2.0); EOSINOPHILS # (AUTO) 0.1 /CMM (0.0-0.7); EOSINOPHILS % (AUTO) 0.6 % (0.0-6.0); HEMATOCRIT 23 % (39-51); HEMOGLOBIN 7.5 g/dL (13.5-17.5); LYMPHOCYTES # (AUTO) 0.7 /CMM (0.8-4.8); MEAN CORPUSCULAR HEMOGLOBIN 36 PG (26.0-33.0); MEAN CORPUSCULAR HGB CONC 34 g/dl (31.0-36.0); MEAN CORPUSCULAR VOLUME 107 fL (80-96); MONOCYTES # (AUTO) 0.1 /CMM (0.1-1.30); MONOCYTES % (AUTO) 0.7 % (2.0-12.0); NEUTROPHILS # (AUTO) 13.4 /CMM (1.8-8.9); NEUTROPHILS % (AUTO) 93.6 % (43.0-81.0); PLATELET COUNT (AUTO) 331 /CMM (150-450); RDW COEFFICIENT OF VARIATION 19.2 (11.5-15.0); RED BLOOD CELL COUNT(AUTO) 2.11 MIL/uL (4.5-6.0); WHITE BLOOD COUNT (AUTO) 14.3 K/uL (4.3-11.0)
[2016-10-27] MEDS: PANTOPRAZOLE 40 MG TABLET.DR PO SCH (06:43)
[2016-10-27] MEDS: BLOOD SUGAR DIAGNOSTIC 1 EACH STRIP IN SCH ×4 (06:43→21:45)
[2016-10-27] MEDS: INSULIN REGULAR, HUMAN 100 UNIT/ML 3 ML VIAL SQ PRN ×3 (06:46→17:12)
--- NOTE | 2016-10-27 06:56 | NUR ---
RN CLOSING NOTES: PATIENT REMAINED IN BED NOT IN APPARENT DISTRESS. KEPT ON O2 THERAPY, TOLERATED WELL. NO COMPLAINTS OF PAIN. IV INFUSING ORDERED ACCESS REMAINED INTACT. SAFETY MEASURES ENSURED. SKIN CARE RENDERED, ACCUCHECKS DONE AND INSULIN PER PROTOCOL. AM LABS DRAWN,RESULTS PENDING. MRSA OBTAINED SENT TO LAB. SAFETY MEASURES ENSURED. CALL LIGHT WITHIN REACH. CONTINUOUSLY MONITORED PATIENT. TO ENDORSE TO AM SHIFT RN.
--- NOTE | 2016-10-27 07:00 | NUR ---
RN NOTES: RECEIVED PT ON BED A/Ox4, RESPIRATION EVEN AND UNLABORED, ON RA ALEX ANY DISTRESS ,IV ACCESS ON ANISH MIDLINE CDI WITH NS AT 75CC/HR , FC DRAINING TO GRAVITY WITH YELLOW CLOUDY URINE . SAFETY MEASURES ENSURED. SR UP x3, CALL LIGHT WITHIN EASY REACH, CONTINUE TO MONITOR PT CLOSELY AND NOTIFY MD FOR ANY SIGNIFICANT CHANGES
[2016-10-27 07:10] LABS: BILIRUBIN,TOTAL 0.3 mg/dL (0.2-1.0); CREATININE 0.5 mg/dL (0.6-1.3); MAGNESIUM 1.6 mg/dL (1.8-2.4); PHOSPHORUS 2.4 mg/dL (2.5-4.9); POTASSIUM 3.8 mmol/L (3.5-5.1); TOTAL PROTEIN, SERUM 4.5 g/dL (6.4-8.2)
[2016-10-27 07:47] LABS: BAND % (MANUAL) 2 % (0.0-5.0); EOSINOPHILS % (MANUAL) 2 % (0-4); LYMPHOCYTES % (MANUAL) 5 % (16-48); MONOCYTES % (MANUAL) 2 % (0-11.0); NEUTROPHILS % (MANUAL) 89 (42-76)
[2016-10-27] MEDS: ASPIRIN 81 MG TAB.CHEW PO SCH (08:03)
[2016-10-27 08:09] LABS: ALBUMIN 1.2 g/dL (3.4-5.0)
[2016-10-27] MEDS ORDERED: ZOLPIDEM TARTRATE 10 MG TABLET PO PRN (11:00)
[2016-10-27] MEDS ORDERED: Magnesium 1GM/D5W 100ML PREMIX 100 ML IV SCH ×2 (11:00→11:30)
[2016-10-27] MEDS ORDERED: HYDROCODONE/APAP 5/325MG 1 EACH TABLET PO PRN (11:00)
[2016-10-27] MEDS: BUMETANIDE INJ 0.25 MG/ML VIAL IV SCH ×2 (11:33→16:05)
[2016-10-27] MEDS: POTASSIUM CHLORIDE 20 MEQ TAB.PRT.SR PO SCH (11:33)
[2016-10-27] MEDS: Magnesium 1GM/D5W 100ML PREMIX 100 ML IV SCH ×2 (11:34→12:38)
--- NOTE | 2016-10-27 12:29 | NUR ---
WOUND CARE CONSULT: PT PRESENTS WITH MULTIPLE SKIN ISSUES INCLUDING GENERALIZED EDEMA, ESPECIALLY TO LOWER EXTREMITIES (4+ PITTING), SACRAL STAGE II ULCER, LEFT LATERAL FOOT INTACT DEEP TISSUE INJURY AND MULTIPLE DRY ABRASIONS, ALL PRESENT ON ADMISSION. PT HAS VERY FRAGILE SKIN WHICH TEARS EASILY. ALL SKIN PROTECTION AND WOUND RECOMMENDATIONS IN PLACE AND DISCUSSED WITH NURSING STAFF. PT ON [place] ISOFLEX LOW AIRLOSS BED. IN AGREEMENT WITH PLAN OF CARE. Addendum: 10/27/16 at 1231 by NELSON SABA WNDNU Amended: Links added.
[2016-10-27] MEDS ORDERED: HYDROGEL DRESSING 90 GM TUBE TP PRN (12:30)
[2016-10-27] MEDS ORDERED: IV NS 0.9% 250 ML IV ONE (13:03)
[2016-10-27] MEDS ORDERED: BLOOD IV SET 1 EA INFUS.SET MC ONE (13:04)
[2016-10-27] MEDS ORDERED: DIPHENOXYLATE HCL/ATROP SULF 1 UDTAB TABLET PO PRN (13:30)
[2016-10-27] MEDS: CLOTRIMAZOLE 1% 15 GM TUBE TP SCH ×2 (13:40→16:08)
[2016-10-27] MEDS: HYDROGEL DRESSING 90 GM TUBE TP SCH (13:40)
[2016-10-27] MEDS: MIDODRINE HCL (5MG) 5 MG TABLET PO SCH (13:44)
--- NOTE | 2016-10-27 14:09 | NUR ---
RN NOTES FIRST UNITS OF PRBC STATED , PT TOLERATING WELL , CONTINUE TO MONITOR
[2016-10-27] MEDS: AMYLASE/LIPASE/PROTEASE 1 CAP CAPSULE.DR PO SCH ×2 (14:20→17:13)
[2016-10-27] MEDS ORDERED: FEE PK DOSING 1 MIN EA MC ONE (14:25)
[2016-10-27] MEDS: Z GUARD REMEDY 4 OZ OINT TP SCH ×2 (15:02→21:39)
[2016-10-27] MEDS ORDERED: K PHOS NEUTRAL 250 MG TABLET PO ONE (16:00)
[2016-10-27] MEDS: GABAPENTIN 100 MG CAPSULE PO SCH (16:05)
[2016-10-27] MEDS: RIVAROXABAN 10 MG TABLET PO SCH (17:13)
--- NOTE | 2016-10-27 18:14 | NUR ---
RN NOTES PT REFUSED TO GET BED BATH STATED HE IS COMFORTABLE , RECEIVING SECOND UNIT OF PRBC'S , NO COMPLICATION NOTED , VSS STABLE , MEDICATED PER MD ORDER , SR UP x3, CALL LIGHT WITHIN EASY REACH , NO SIGNIFICANT CHANGES NOTED ON THIS SHIFT
--- NOTE | 2016-10-27 19:30 | NUR ---
MS/RN NOTES RECEIVED PT IN STABLE CONDITION. RESTING IN BED, AWAKE, ALERT & ORIENTED X4. RA. R UPPER MIDLINE SITE CDI WITH 2ND UNIT PRBC TRANSFUSING WELL WITH NO S/S OF REACTION. PATIENT DENIES ANY PAIN. SACRAL AND SCROTAL REDNESS WITH Z-GUARD, L THIGH BLISTER, MULTIPLE SKIN TEAR AND SCABS TO BUE AND BLE. MONTEJO CATH INTACT DRAINING YELLOW URINE. PT MADE AWARE OF PLAN OF CARE INCLUDING LABS IN AM. VERBALIZED UNDERSTANDING. NO CONCERNS OFFERED AT THIS TIME. BED AT LOWEST POSITION AND LOCKED, SIDE TABLE, CALL REINA AND PERSONAL BELONGINGS WITHIN REACH. BED ALARM ON FOR SAFETY PRECAUTION. WILL CONTINUE TO MONITOR.
[2016-10-27] MEDS ORDERED: IV SET PRIMARY 1 EA INFUS.SET MC ONE (21:04)
[2016-10-27] MEDS ORDERED: SECONDARY IV SET 1 EA INFUS.SET MC ONE (21:04)
--- NOTE | 2016-10-27 21:04 | NUR ---
MS/RN NOTES 2ND UNIT PRBC DONE TRANSFUSING WITH NO S/S OF REACTION AND NO COMPLAINTS MADE. V/S WNL. PATIENT STABLE, A&OX4.
[2016-10-27] MEDS: CEFTRIAXONE 1 G in IV D5W 50 ML IV SCH (21:11)
[2016-10-27] MEDS: INSULIN DETEMIR 100 UNIT/ML CARTRIDGE SQ SCH (21:47)
[2016-10-28 01:00] VITALS: BP 119/74
--- NOTE | 2016-10-28 01:00 | NUR ---
TRANSFER NOTES: RECEIVED REPORT FROM YO NUNEZ, PT TRANSFERRED FROM [facility], BROUGHT TO THE UNIT VIA BED, PT IS A/O X4, COOPERATIVE CALM, RESPIRATION EVEN AND UNLABORED, P[T HAS RIGHT UPPER MIDLINE IN PLACED, PATENT AND FLUSHING WELL, ON HL. ALL BELONGINGS CHECKED, LEFT AT BED SIDE. SKIN ASSESSMENT PERFORMED WITH SAME SKIN ISSUES NOTED. PT ON SPECIAL MATTRESS. HAS MONTEJO CATH IN PLACED, DRAINING INTO CONCENTRATED URINE. NOTED BLE SWELLING, NO SCD'S PLACED. BLE KEPT OFFLOADED ON PILLOWS. SAFETY PRECAUTIONS FOR FALL INITIATED CALL LIGHT IN REACH WILL CONTINUE TO MONITOR
[2016-10-28 02:55] VITALS: BP 119/74
--- NOTE | 2016-10-28 06:00 | NUR ---
BED SCALE/WEIGHT: NOTED PT'S BEDSCALE NOT WORKING, UNABLE TO DO DAILY WEIGHT, PT BED FAST, CHECKED ALL CONNECTION. ALL PLUG CONNECTED TO RED OUTLET BUT STILL NOT WORKING, HOWEVER ISOFLEX PUMP AND THE FUNCTIONS AT SIDE RAILS AREA IS WORKING, CONTACTED ENGINEERING LEFT A MESSAGE,
[2016-10-28] MEDS: INSULIN REGULAR, HUMAN 100 UNIT/ML 3 ML VIAL SQ PRN ×3 (06:42→21:56)
[2016-10-28] MEDS: BLOOD SUGAR DIAGNOSTIC 1 EACH STRIP IN SCH ×4 (06:42→21:52)
--- NOTE | 2016-10-28 06:43 | NUR ---
MS RN BLOOD SUGAR AT 0640 BLOOD SUGAR WAS 88, NO INSULIN NEEDED PER SLIDING SCALE. CONTINUE TO MONITOR FOR S/S OF HYPER/HYPO GLYCEMIA
[2016-10-28 06:52] LABS: BASOPHILS % (AUTO) 0.1 % (0.0-2.0); EOSINOPHILS # (AUTO) 0.1 /CMM (0.0-0.7); HEMATOCRIT 28 % (39-51); HEMOGLOBIN 9.3 g/dL (13.5-17.5); LYMPHOCYTES # (AUTO) 0.8 /CMM (0.8-4.8); LYMPHOCYTES % (AUTO) 11.1 % (20.0-44.0); MEAN CORPUSCULAR HEMOGLOBIN 34 PG (26.0-33.0); MEAN CORPUSCULAR HGB CONC 34 g/dl (31.0-36.0); MEAN CORPUSCULAR VOLUME 100 fL (80-96); MONOCYTES # (AUTO) 0.1 /CMM (0.1-1.30); MONOCYTES % (AUTO) 1.1 % (2.0-12.0); NEUTROPHILS # (AUTO) 6.4 /CMM (1.8-8.9); NEUTROPHILS % (AUTO) 86.7 % (43.0-81.0); PLATELET COUNT (AUTO) 286 /CMM (150-450); RDW COEFFICIENT OF VARIATION 21.4 (11.5-15.0); RED BLOOD CELL COUNT(AUTO) 2.77 MIL/uL (4.5-6.0); WHITE BLOOD COUNT (AUTO) 7.4 K/uL (4.3-11.0)
--- NOTE | 2016-10-28 06:59 | NUR ---
RN CLOSING NOTES: PATIENT REMAINED IN BED NOT IN APPARENT DISTRESS. NO SIGNS OF SOB OR DISTRESS AT THIS TIME ON ROOM AIR. NO COMPLAINTS OF PAIN.RIGHT UPPER ARM MIDLINE INTACT. SAFETY MEASURES ENSURED. SKIN CARE RENDERED, ACCUCHECKS DONE PER PROTOCOL. AM LABS DRAWN,RESULTS PENDING. SAFETY MEASURES ENSURED. CALL LIGHT WITHIN REACH. CONTINUOUSLY MONITORED PATIENT. WILL ENDORSE TO AM SHIFT RN.
[2016-10-28 07:17] LABS: CREATININE 0.4 mg/dL (0.6-1.3); MAGNESIUM 1.4 mg/dL (1.8-2.4); PHOSPHORUS 2.9 mg/dL (2.5-4.9); POTASSIUM 3.7 mmol/L (3.5-5.1)
--- NOTE | 2016-10-28 07:39 | NUR ---
RN MS NOTES PATIENT IN BED, ASLEEP, NO S/SX OF DISTRESS AT THIS TIME, SAFETY MEASURES IN PLACED, CALL LIGHT WITHIN REACH, WILL CONTINUE TO MONITOR.
[2016-10-28 08:00] VITALS: BP 114/73
[2016-10-28] MEDS: PANTOPRAZOLE 40 MG TABLET.DR PO SCH (08:13)
[2016-10-28] MEDS: LEVOTHYROXINE SODIUM 25 MCG TABLET PO SCH (08:13)
[2016-10-28] MEDS: ASPIRIN 81 MG TAB.CHEW PO SCH (08:14)
[2016-10-28] MEDS: FERROUS SULFATE (325 MG) 325 MG/TAB TABLET PO SCH (08:14)
[2016-10-28] MEDS: GABAPENTIN 100 MG CAPSULE PO SCH ×3 (08:15→17:11)
[2016-10-28] MEDS: MIDODRINE HCL (5MG) 5 MG TABLET PO SCH (08:15)
[2016-10-28] MEDS: POTASSIUM CHLORIDE 20 MEQ TAB.PRT.SR PO SCH (08:15)
[2016-10-28] MEDS: SERTRALINE HCL 50 MG TABLET PO SCH ×2 (08:15→17:10)
[2016-10-28] MEDS: LOSARTAN POTASSIUM 25 MG TABLET PO SCH (08:15)
[2016-10-28] MEDS: BUMETANIDE INJ 0.25 MG/ML VIAL IV SCH ×2 (08:16→17:08)
[2016-10-28] MEDS: HYDROGEL DRESSING 90 GM TUBE TP SCH (08:17)
[2016-10-28] MEDS: Z GUARD REMEDY 4 OZ OINT TP SCH ×2 (08:17→20:21)
[2016-10-28] MEDS: CLOTRIMAZOLE 1% 15 GM TUBE TP SCH ×2 (08:17→17:11)
[2016-10-28] MEDS: LIPASE/PROTEASE/AMYLASE 1 EACH CAPSULE.DR PO SCH ×3 (09:29→17:09)
[2016-10-28] MEDS ORDERED: SECONDARY IV SET 1 EA INFUS.SET MC ONE (13:08)
[2016-10-28] MEDS: Magnesium 1GM/D5W 100ML PREMIX 100 ML IV SCH ×3 (13:19→15:30)
[2016-10-28] MEDS: OCTREOTIDE 100 MCG/ML VIAL SQ SCH ×2 (13:25→17:08)
[2016-10-28 16:00] VITALS: BP 148/82
[2016-10-28] MEDS: RIVAROXABAN 10 MG TABLET PO SCH (17:23)
--- NOTE | 2016-10-28 19:08 | NUR ---
RN MS NOTES PATIENT IN BED WATCHING TV, NO DISTRESS NOTED, MAGNESIUM REPLACED, NO S/SX OF DISTRESS, NO S/SX OF HYPO OR HYPERGLYCEMIA NOTED, ALL DUE MEDS GIVEN ORDERED, TURNED AND REPOSITIONED, WOUND TREATMENT RENDERED ORDERED, FAMILY AT BEDSIDE, CALL LIGHT WITHIN REACH, WILL ENDORSE TO MANUFACTURING SR ENGINEER FOR LIZZY.
--- NOTE | 2016-10-28 19:22 | NUR ---
MS RN NOTES RECEIVED PT IN BED, AWAKE, A/O X4. VERBALLY RESPONSIVE. NO DISTRESS.ANISH MIDLINE, INTACT AND PATENT, NO S/S OF INFILTRATION NOR INFECTION NOTED. NOTED. ALL NEEDS ATTENDED. NO S/S OF HYPO/ HYPERGLYCEMIA NOTED. SAFETY PRECAUTIONS OBSERVED. WILL CONTINUE TO MONITOR.
[2016-10-28 20:00] VITALS: BP 126/77
[2016-10-28] MEDS: CEFTRIAXONE 1 G in IV D5W 50 ML IV SCH (20:16)
[2016-10-28] MEDS: INSULIN DETEMIR 100 UNIT/ML CARTRIDGE SQ SCH (21:55)
[2016-10-28 22:00] VITALS: BP 126/77
--- NOTE | 2016-10-29 06:19 | NUR ---
PT'S BS ; 60 AT THIS TIME, OJ GIVEN TO THE PT AND ALSO PT IS EATING VANILLA PUDDING AT THIS TIME. NO S/S OF HYPOGLYCEMIA NOTED. WILL RECHECK BS AGAIN AND WILL CONT TO MONITOR.
[2016-10-29] MEDS: BLOOD SUGAR DIAGNOSTIC 1 EACH STRIP IN SCH (06:57)
[2016-10-29 06:59] LABS: BASOPHILS # (AUTO) 0.1 /CMM (0.0-0.2); BASOPHILS % (AUTO) 0.3 % (0.0-2.0); EOSINOPHILS % (AUTO) 0.2 % (0.0-6.0); HEMATOCRIT 32 % (39-51); LYMPHOCYTES # (AUTO) 1.2 /CMM (0.8-4.8); LYMPHOCYTES % (AUTO) 6.5 % (20.0-44.0); MEAN CORPUSCULAR HEMOGLOBIN 34 PG (26.0-33.0); MEAN CORPUSCULAR HGB CONC 34 g/dl (31.0-36.0); MEAN CORPUSCULAR VOLUME 100 fL (80-96); MONOCYTES # (AUTO) 0.4 /CMM (0.1-1.30); MONOCYTES % (AUTO) 2.1 % (2.0-12.0); NEUTROPHILS # (AUTO) 17.3 /CMM (1.8-8.9); NEUTROPHILS % (AUTO) 90.9 % (43.0-81.0); PLATELET COUNT (AUTO) 341 /CMM (150-450); RDW COEFFICIENT OF VARIATION 21.3 (11.5-15.0); RED BLOOD CELL COUNT(AUTO) 3.23 MIL/uL (4.5-6.0)
--- NOTE | 2016-10-29 07:18 | NUR ---
MS RN NOTES PT IN BED, AWAKE, A/O X4. VERBALLY RESPONSIVE. NO DISTRESS.ANISH MIDLINE, INTACT AND PATENT, NO S/S OF INFILTRATION NOR INFECTION NOTED. NOTED. ALL NEEDS ATTENDED. NO S/S OF HYPO/ HYPERGLYCEMIA NOTED. SAFETY PRECAUTIONS OBSERVED. WILL ENDORSE TO NEXT SHIFT FOR LIZZY.
--- NOTE | 2016-10-29 07:30 | NUR ---
AM RN NOTE Received patient sleeping comfortably in his bed, no acute distress noted. No SOB noted resp even and non-labored. IV site intact and patent. Bed in low locked position. Will continue to monitor. Call light with in reach.
[2016-10-29 08:00] VITALS: BP 131/84
[2016-10-29 08:22] LABS: CALCIUM, SERUM 7.2 mg/dL (8.5-10.1); CREATININE 0.6 mg/dL (0.6-1.3); MAGNESIUM 1.5 mg/dL (1.8-2.4); POTASSIUM 3.8 mmol/L (3.5-5.1)
[2016-10-29 08:23] VITALS: BP 131/84
[2016-10-29] MEDS: MIDODRINE HCL (5MG) 5 MG TABLET PO SCH (08:23)
[2016-10-29] MEDS: LOSARTAN POTASSIUM 25 MG TABLET PO SCH (08:23)
[2016-10-29] MEDS: SERTRALINE HCL 50 MG TABLET PO SCH (08:23)
[2016-10-29] MEDS: ASPIRIN 81 MG TAB.CHEW PO SCH (08:23)
[2016-10-29] MEDS: PANTOPRAZOLE 40 MG TABLET.DR PO SCH (08:23)
[2016-10-29] MEDS: LEVOTHYROXINE SODIUM 25 MCG TABLET PO SCH (08:23)
[2016-10-29] MEDS: GABAPENTIN 100 MG CAPSULE PO SCH (08:23)
[2016-10-29] MEDS: FERROUS SULFATE (325 MG) 325 MG/TAB TABLET PO SCH (08:23)
[2016-10-29] MEDS: BUMETANIDE INJ 0.25 MG/ML VIAL IV SCH (08:24)
[2016-10-29] MEDS: OCTREOTIDE 100 MCG/ML VIAL SQ SCH (08:24)
[2016-10-29] MEDS: LIPASE/PROTEASE/AMYLASE 1 EACH CAPSULE.DR PO SCH (08:26)
[2016-10-29] MEDS: HYDROGEL DRESSING 90 GM TUBE TP SCH (08:26)
[2016-10-29] MEDS: POTASSIUM CHLORIDE 20 MEQ TAB.PRT.SR PO SCH (08:27)
[2016-10-29] MEDS: Z GUARD REMEDY 4 OZ OINT TP SCH (08:27)
[2016-10-29] MEDS: CLOTRIMAZOLE 1% 15 GM TUBE TP SCH (08:28)
[2016-10-29 08:40] LABS: BAND % (MANUAL) 1 % (0.0-5.0); LYMPHOCYTES % (MANUAL) 6 % (16-48); MONOCYTES % (MANUAL) 4 % (0-11.0); NEUTROPHILS % (MANUAL) 89 (42-76)
--- NOTE | 2016-10-29 11:15 | NUR ---
AM RN NOTE Patient awake, A/O X3 verbally responsive. Pt seen and assessed by Dr. Severino with new order to discharge pt home. Per Dr. Severino pt will be discharged with Midline and murrell catheter. Discharge instructions on medications and teachings given to pt and he verbalize understanding. Skin pictures taken and placed in chart. Belongings endorsed & signed. Will continue to monitor.
--- NOTE | 2016-10-29 12:20 | NUR ---
AM RN NOTE Patient awake, A/O X3 denies any pain or discomfort at this time. Discharge instructions on medications and teachings given to and verbalize understanding. Pt discharged/ left unit in w/c at this time as accompanied by , sister and ROOM SERVICE ASSOCIATE to downstairs with all his belongings. Midline and F/C intact.
[2016-10-29] MEDS ORDERED: MAGNESIUM OXIDE 400 MG TABLET PO ONE (13:30)
== END 2016-10-29 12:20 | disposition home or self-care (01) | DRG 871 ==
LOC: ER 14:03 → MEDSG1 16:55 → MEDSG2 10-28 00:51
PROVIDERS: ADMIT Legal Medicine; ATTEND Legal Medicine
PROC: 30233N1 Transfusion of Nonautologous Red Blood Cells into Peripheral Vein, Percutaneous Approach (ICD-10-PCS; principal; 2016-10-27)
DX: A41.9 Sepsis, unspecified organism (principal); E43 Unspecified severe protein-calorie malnutrition; N39.0 Urinary tract infection, site not specified; E11.9 Type 2 diabetes mellitus without complications; D64.9 Anemia, unspecified; Z85.07 Personal history of malignant neoplasm of pancreas; Z86.718 Personal history of other venous thrombosis and embolism; R53.1 Weakness; I10 Essential (primary) hypertension; Z68.28 Body mass index [BMI] 28.0-28.9, adult; B96.20 Unspecified Escherichia coli [E. coli] as the cause of diseases classified elsewhere; Z88.0 Allergy status to penicillin; K52.9 Noninfective gastroenteritis and colitis, unspecified; Z86.14 Personal history of Methicillin resistant Staphylococcus aureus infection; E87.70 Fluid overload, unspecified; Z79.899 Other long term (current) drug therapy
CPT/HCPCS: 36415; 71010-TC; 80048-TC; 80053-TC; 80076-TC; 81000-TC; 82962-TC; 83605-TC; 83735-TC; 84100-TC; 84484-TC; 85025-TC; 85730-TC; 86301; 86850-TC; 86921-TC; 87040-TC; 87081-TC; 87086-TC; 87186-TC; 97001-TC; 97110-TC; A4606; A6248; A6402; J0696; J1650; J1815; J1956; J2354; J3475; J3490; J7030; J7050; J7060; P9016-BL; Z7610

== ENCOUNTER 2016-11-11 19:26 | Emergency (ER) | payer MEDICARE, BC, OTHER ==
[~2016-11-11] VITALS: Ht 172.7 cm; Wt 65.8 kg
[~2016-11-11 19:26] MED LIST changes: -ATOR10TA PO; +LEVO25TA9 PO; -MAGN500C4 PO; -OMEP40CA37 PO; +RIVA10TA PO
[2016-11-11] MEDS ORDERED: LIDOCAINE 2% JEL UROJET 10 ML MM ONE ×2 (19:33→20:00)
--- NOTE | 2016-11-11 19:45 | NUR ---
66 Y MALE BB AMBULANCE FROM [facility]. PT IS ALERT X 3, STATES THE NURSES HAD DIFICUTLY INSERTING MONTEJO CATH, SENT TO MD FOR EVAL. PT DS TO ER BED, SKIN WARM AND DRY, RR EVEN AND UNLABORED. AWAITING ORDERS FROM PROVIDER
--- NOTE | 2016-11-11 19:50 | NUR ---
PLACE MONTEJO CATH WITHUOT INCIDENT WITH THE USE OF URO JET. MD ROAFIVERONIQUE. WILL CONITNUE TO MONITOR
--- NOTE | 2016-11-11 20:44 | NUR ---
CALLED [facility] FOR TRANSPORT BACK TO [facility], ETA 30 MIN
[2016-11-11 21:37] VITALS: BP 121/77
--- NOTE | 2016-11-11 21:39 | NUR ---
REPORT GIVEN TO EMT FOR TRANSPORT
== END 2016-11-11 21:38 | disposition home or self-care (01) ==
LOC: ER 19:28
DX: Z46.6 Encounter for fitting and adjustment of urinary device (principal); K58.9 Irritable bowel syndrome, unspecified; C25.9 Malignant neoplasm of pancreas, unspecified; I10 Essential (primary) hypertension; E11.9 Type 2 diabetes mellitus without complications; Z88.0 Allergy status to penicillin
CPT/HCPCS: 51702; 99284; A4606; J3490; Z7610